=== PATIENT | male | born 1980 | race Caucasian/White ===

== ENCOUNTER 2021-06-18 09:15 | Outpatient (REF) | payer MEDICARE, MEDICAID, SELFPAY ==
--- NOTE | ~2021-06-18 | US_ITS ---
EXAMINATION: US ABDOMEN COMPLETE CLINICAL INFORMATION: Hepatitis C. COMPARISON: None TECHNIQUE: Real-time imaging of the abdominal viscera. FINDINGS: PANCREAS: Not visualized due to bowel gas ABDOMINAL AORTA: No bowel wall visualized due to bowel gas INFERIOR VENA CAVA: Not well visualized due to bowel gas LIVER: The liver is normal in size. The liver contour is normal. The liver echotexture is normal. No focal hepatic lesion. There is no intrahepatic biliary duct dilatation seen. GALLBLADDER: Normal. The gallbladder is physiologically distended without evidence of stones, sludge, polyps, wall thickening or pericholecystic fluid. COMMON BILE DUCT: Normal in caliber measuring 0.5 cm in diameter. RIGHT KIDNEY: Normal. No hydronephrosis. No renal calculi or focal parenchymal lesions. The kidney measures 10.7 cm in maximum dimension. LEFT KIDNEY: Normal. No hydronephrosis. No renal calculi or focal parenchymal lesions. The kidney measures 12.3 cm in maximum dimension. SPLEEN: Normal. The spleen measures 12.9 cm in maximum dimension. FREE FLUID: None. US/US abdomen complete IMPRESSION: Normal-appearing liver. Limited visualization of the pancreas, aorta and IVC due to bowel gas.
== END 2021-06-18 09:16 | disposition home or self-care (01) ==
LOC: HO.US 09:15
PROVIDERS: Visit Provider General Practice
DX: B19.20 Unspecified viral hepatitis C without hepatic coma (principal); E11.65 Type 2 diabetes mellitus with hyperglycemia; E78.5 Hyperlipidemia, unspecified; Z79.84 Long term (current) use of oral hypoglycemic drugs
CPT/HCPCS: 76700; 82947; 99212

== ENCOUNTER → 2021-06-25 14:28 | Outpatient (BNVA) | payer MEDICARE, MEDICAID, SELFPAY | PROVIDERS: PCP General Practice; Visit Provider Urology | DX: R39.12 Poor urinary stream (principal); R39.11 Hesitancy of micturition | CPT/HCPCS: 51798; 99202 ==

== ENCOUNTER → 2021-08-22 12:58 | Outpatient (BNVA) | payer MEDICARE, MEDICAID, SELFPAY | PROVIDERS: PCP General Practice; Visit Provider Dietitian, Registered | DX: E11.65 Type 2 diabetes mellitus with hyperglycemia (principal) | CPT/HCPCS: 97802 ==

== ENCOUNTER 2021-09-09 07:49 | Emergency (ER) | payer MEDICARE, MEDICAID, SELFPAY ==
--- NOTE | 2021-09-09 07:52 | ED.OVERDOSE ---
HPI - Overdose General Chief Complaint: Overdose Stated Complaint: OD Time Seen by Provider: 09/09/21 07:52 Source: patient and family Mode of arrival: ambulatory Limitations: no limitations History of Present Illness HPI Narrative: Pulled out of the car. Patient went to Methadone clinic but today was unconscious. He received 8mg of nasal methadone prior to my seeing him. 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 complaint: accidental overdose Onset (ago): minute(s) Intent: other (get high) Context: Accidental Overdose: wanted to get high Related Data Home Medications Medication Instructions Recorded Confirmed aspirin 81 mg chewable tablet 1 tab PO DAILY 06/18/21 06/18/21 escitalopram oxalate 10 mg tablet 10 mg PO DAILY 06/18/21 06/18/21 insulin glargine 100 unit/mL (3 20 unit SUBCUT BEDTIME 06/18/21 06/18/21 mL) subcutaneous pen methadone 5 mg/0.5 mL oral syringe 92 mg PO DAILY ea 06/18/21 06/18/21 (FOR ORAL USE ONLY) nicotine 21 mg/24 hr daily 1 patch TRANSDERMAL DAILY 06/18/21 06/18/21 transdermal patch omeprazole 20 mg capsule,delayed 20 mg PO DAILY 06/18/21 06/18/21 release lancets 28 gauge #100 ea 06/25/21 pen needle, diabetic 31 gauge x #1200 ea 06/25/2104/14 Previous Rx's Medication Instructions Recorded metformin 1,000 mg tablet 1,000 mg PO BID #60 tab 10/15/20 atorvastatin 40 mg tablet 40 mg PO BEDTIME #30 tab 06/18/21 blood sugar diagnostic (FreeStyle 1 strip MISCELLANEOUS DAILY #100 06/18/21 Lite Strips) strip pen needle, diabetic 32 gauge x #100 ea 06/18/21 (BD Ultra-Fine Mitzi Pen Needle) repaglinide 0.5 mg tablet 0.5 mg PO TID 30 Days #30 tab 06/18/21 tamsulosin 0.4 mg capsule 0.4 mg PO BEDTIME 30 Days #30 cap 06/25/21 Allergies Allergy/AdvReac Type Severity Reaction Status Date / Time haloperidol [From HALDOL] Allergy Unknown UNKNOWN Verified 06/25/21 14:40 haldol Allergy Unknown anaphalaxis Uncoded 06/18/21 13:03 Review of Systems Review of Systems: Yes Unobtainable due to mental status Neurologic: Denies Sensory deficit (Neuro) [facility] Past Medical History Medical History GERD (gastroesophageal reflux disease) Hyperlipidemia LDL goal <100 Surgical History History of ear surgery Hx of appendectomy Hx of hand surgery Hx of surgical amputation of finger Family History Family History (Updated 06/18/21 @ 12:42 by Anni Walker [facility]) Father No problems noted. Mother Diabetes Social History Social History Household Members: Other Household Members Other:: fiance Alcohol intake: unknown Patient Tobacco Use Status: Current everyday Tobacco user Use of substances other than those prescribed or required for medical reasons: Yes Advance Directives: No Advance Directives Information Provided: No Physical Exam Vital Signs: Vital Signs: Last Vital Signs Temp 96.8 F 09/09/21 11:40 Pulse 106 H 09/09/21 11:40 Resp 16 09/09/21 11:40 BP 107/56 L 09/09/21 11:40 Pulse Ox 97 09/09/21 11:40 Body Mass Index 30.4 Const: Other: arousable to pain, breathing Nutritional Appearance: average body habitus Limitations: altered mental status HENMT: Other: pin point pupils Ears: external ears normal General nose exam: Normal external nose present Mouth: Normal oral and palatal mucosa present and oropharynx normal Throat: Yes posterior oropharynx normal Eyes: General: appearance normal, both eyes and all related structures Neck: Other: supple Neck: Yes normal visual inspection Chest: Chest palpation & inspection: normal inspection of the chest Resp: Auscultation: clear to auscultation bilaterally Cardio: Jugular venous distension: no JVD Rate: regular rate Rhythm: regular rhythm Heart sounds: S1 normal heart sound present and S2 normal heart sound present GI: Inspection: Yes normal to inspection Palpation (GI): Soft to palpation, nontender and No hepatosplenomegaly present Auscultation: normal bowel sounds : General: Yes no CVA tenderness Back/Spine/Pelvis: Back: no CVA tenderness Skin: General skin exam: no rashes or lesions noted Neuro: Cranial nerves: Yes CN's II-XII intact bilaterally Motor exam (neuro): 5/5 motor strength present throughout Sensory Exam: No Sensory deficit (Neuro) Extrem: General: Yes normal to inspection Psych: Appearance: grossly normal Course Reevaluation(s) Reevaluation #1: patient more alert will dc home Time: 14:28 MDM - Overdose Lab Data Labs: Lab Results 09/09/21 Range/Units 07:54 POC Glucose 249 H (60-115) mg/dL Discharge Plan Discharge Clinical Impression: Drug overdose Qualifiers: Encounter type: initial encounter Injury intent: accidental or unintentional Qualified Code(s): T50.901A - Poisoning by unspecified drugs, medicaments and biological substances, accidental (unintentional), initial encounter Patient Disposition: Home, Self-Care Instructions: Adult Overdose (ED) Prescriptions: No Action metformin 1,000 mg tablet 1,000 mg PO BID Qty: 60 RF: 3 aspirin 81 mg tablet,chewable 1 tab PO DAILY RF: 0 escitalopram oxalate 10 mg tablet 10 mg PO DAILY RF: 0 nicotine 21 mg/24 hr patch 24 hour 1 patch transdermal DAILY RF: 0 omeprazole 20 mg capsule,delayed release(DR/EC) 20 mg PO DAILY RF: 0 Lantus Solostar U-100 Insulin 100 unit/mL (3 mL) insulin pen 20 unit subcut BEDTIME RF: 0 methadone 5 mg/0.5 mL syringe 92 mg PO DAILY RF: 0 repaglinide 0.5 mg tablet 0.5 mg PO TID 30 Days Qty: 30 RF: 4 FreeStyle Lite Strips Strip 1 strip miscellaneous DAILY Qty: 100 RF: 6 atorvastatin 40 mg tablet 40 mg PO BEDTIME Qty: 30 RF: 4 (DME) pen needle, diabetic [BD Ultra-Fine Mitzi Pen Needle] 32 gauge x 5/32 needle See Rx Instructions .ROUTE .MEDSUPPLY Qty: 100 RF: 3 tamsulosin 0.4 mg capsule 0.4 mg PO BEDTIME 30 Days Qty: 30 RF: 1 Referrals: Physician,None [Primary Care Provider] - 1 week
[2021-09-09 07:54] VITALS: BP 121/77; PULSE 71; RESP 10; TEMP 36.6; O2SAT 94; BMI 30.4
[2021-09-09 07:59] LABS: Glucose, Whole Blood 249 mg/dL (60-115)
--- NOTE | 2021-09-09 08:09 | PC.NURSE ---
Pt is now awake, alert and oriented and is screaming out towards staff. pt is noted to be tachycardic and very restless. made aware.
[2021-09-09 08:14] VITALS: PULSE 124; RESP 32; O2SAT 97
--- NOTE | 2021-09-09 08:48 | PC.NURSE ---
Pt pulled out his IV and threw it across the room. Right hand bandaged up. Pt took off his monitoring devices, but remains on EtCO2 monitoring. Pt continues to be restless, shaky and is diaphoretic. Pt is able to maintain his own airway.
--- NOTE | 2021-09-09 08:52 | MHC.CARE ---
Pt not able to engage in SUDE at this time. CONNIE Garduno made aware to reach out to CARE Team when Pt is able to participate if he is would like a SUDE.
--- NOTE | 2021-09-09 09:00 | PC.NURSE ---
Pt continually getting up, unsteady on feet and is not easily redirectible. Pt moved to [address] for closer monitoring.
--- NOTE | 2021-09-09 11:03 | PC.NURSE ---
pt ate a cup off vanila pudding and a cup of oj.
[2021-09-09 11:40] VITALS: BP 107/56; PULSE 106; RESP 16; TEMP 36; O2SAT 97
[2021-09-09 14:35] VITALS: BP 104/66; PULSE 95; RESP 16; TEMP 35.6; O2SAT 95
--- NOTE | 2021-09-09 14:39 | PC.NURSE ---
pt denies any si/hi.
== END 2021-09-09 14:57 | disposition home or self-care (01) ==
PROVIDERS: Emergency Provider Emergency Medicine
DX: T40.1X1A Poisoning by heroin, accidental (unintentional), initial encounter (principal); Y92.810 Car as the place of occurrence of the external cause
CPT/HCPCS: 82947; 99283; 99285

== ENCOUNTER 2022-07-29 09:21 | Outpatient (REF) | payer MEDICARE, MEDICAID, SELFPAY ==
--- NOTE | ~2022-07-29 | XR_ITS ---
EXAMINATION: LUMBAR SPINE AND BILATERAL HIPS CLINICAL INFORMATION: Right hip pain. COMPARISON: None. TECHNIQUE: 2 views of each hip. A 6 view lumbosacral spine. FINDINGS: There are 5 [id number] lumbar vertebra. The bony texture and alignment is satisfactory. No acute fracture, spondylolisthesis, or spondylolysis identified. There is moderate narrowing of the L5-S1 disc space. Sacroiliac joints appear unremarkable. Psoas margins are intact. 2 views of the left hip do not demonstrate any evidence of acute fracture or dislocation. Hip joint space is maintained. There is minor spurring of the greater trochanter. No suspicious lytic or sclerotic lesions are identified and there is no evidence of femoral head collapse. Views of the right hip do not show any evidence of acute fracture or dislocation. Right hip joint space is maintained. No abnormal lytic or sclerotic lesions identified. XR/XR hip RT min 2V IMPRESSION: Spondylosis L5-S1. No acute fracture, spondylolisthesis, or spondylolysis identified. No significant abnormality of the right or left hips is identified.
--- NOTE | ~2022-07-29 | XR_ITS ---
EXAMINATION: LUMBAR SPINE AND BILATERAL HIPS CLINICAL INFORMATION: Right hip pain. COMPARISON: None. TECHNIQUE: 2 views of each hip. A 6 view lumbosacral spine. FINDINGS: There are 5 [id number]-jwy-[id number] lumbar vertebra. The bony texture and alignment is satisfactory. No acute fracture, spondylolisthesis, or spondylolysis identified. There is moderate narrowing of the L5-S1 disc space. Sacroiliac joints appear unremarkable. Psoas margins are intact. 2 views of the left hip do not demonstrate any evidence of acute fracture or dislocation. Hip joint space is maintained. There is minor spurring of the greater trochanter. No suspicious lytic or sclerotic lesions are identified and there is no evidence of femoral head collapse. Views of the right hip do not show any evidence of acute fracture or dislocation. Right hip joint space is maintained. No abnormal lytic or sclerotic lesions identified. XR/XR hip LT min 2V IMPRESSION: Spondylosis L5-S1. No acute fracture, spondylolisthesis, or spondylolysis identified. No significant abnormality of the right or left hips is identified.
--- NOTE | ~2022-07-29 | XR_ITS ---
EXAMINATION: LUMBAR SPINE AND BILATERAL HIPS CLINICAL INFORMATION: Right hip pain. COMPARISON: None. TECHNIQUE: 2 views of each hip. A 6 view lumbosacral spine. FINDINGS: There are 5 [id number] lumbar vertebra. The bony texture and alignment is satisfactory. No acute fracture, spondylolisthesis, or spondylolysis identified. There is moderate narrowing of the L5-S1 disc space. Sacroiliac joints appear unremarkable. Psoas margins are intact. 2 views of the left hip do not demonstrate any evidence of acute fracture or dislocation. Hip joint space is maintained. There is minor spurring of the greater trochanter. No suspicious lytic or sclerotic lesions are identified and there is no evidence of femoral head collapse. Views of the right hip do not show any evidence of acute fracture or dislocation. Right hip joint space is maintained. No abnormal lytic or sclerotic lesions identified. XR/XR lumbar spine 4V min IMPRESSION: Spondylosis L5-S1. No acute fracture, spondylolisthesis, or spondylolysis identified. No significant abnormality of the right or left hips is identified.
== END 2022-07-29 09:22 | disposition home or self-care (01) ==
LOC: HO.XRAY 09:21
PROVIDERS: PCP General Practice; Visit Provider General Practice
DX: M25.551 Pain in right hip (principal); M25.552 Pain in left hip; M54.41 Lumbago with sciatica, right side; M54.42 Lumbago with sciatica, left side
CPT/HCPCS: 72110; 73502

== ENCOUNTER → 2022-11-05 15:14 | Outpatient (BNVA) | payer MEDICARE, MEDICAID, SELFPAY | PROVIDERS: PCP General Practice; Visit Provider Anesthesiology | DX: M47.816 Spondylosis without myelopathy or radiculopathy, lumbar region (principal); M70.61 Trochanteric bursitis, right hip; G89.4 Chronic pain syndrome; F11.20 Opioid dependence, uncomplicated | CPT/HCPCS: 99202 ==

== ENCOUNTER 2022-12-09 05:52 | Outpatient (REF) | payer MEDICARE, MEDICAID, SELFPAY ==
--- NOTE | ~2022-12-09 | FL_ITS ---
EXAMINATION: XR FLUOROSCOPY WITH IMAGES CLINICAL INFORMATION: M47.816 - Spondylosis without myelopathy or radiculopathy, lumbar region COMPARISON: Lumbar spine radiographs 07/29/2022 TECHNIQUE: Fluoroscopy Supervised By: Dr. Mauri Zarate. Fluoroscopy Time: 0.6 minutes. Cumulative Dose: 12.5 mGy. DAP: 3.41 Gycm2. Images: 6. FINDINGS: There are spinal needles overlying the bilateral outer L3, L4, and L5 neural foramen. There is contrast seen in the respective nerve sheaths. Some early transforaminal epidural extension is suggested. No visible vascular communication. FL/FL guidance in treatment room IMPRESSION: Fluoroscopy for pain management procedures.
== END 2022-12-09 05:53 | disposition home or self-care (01) ==
LOC: CF 05:52
PROVIDERS: Visit Provider Anesthesiology
DX: M47.816 Spondylosis without myelopathy or radiculopathy, lumbar region (principal); M70.61 Trochanteric bursitis, right hip; G89.4 Chronic pain syndrome; F11.20 Opioid dependence, uncomplicated
CPT/HCPCS: 64493; 64494

== ENCOUNTER → 2022-12-11 08:34 | Outpatient (BNVA) | payer MEDICARE, MEDICAID, SELFPAY | PROVIDERS: PCP General Practice; Visit Provider Anesthesiology | DX: M47.816 Spondylosis without myelopathy or radiculopathy, lumbar region (principal); M70.61 Trochanteric bursitis, right hip; G89.4 Chronic pain syndrome; F11.20 Opioid dependence, uncomplicated | CPT/HCPCS: Q3014 ==

== ENCOUNTER 2023-02-12 10:21 | Day surgery (SDC) | payer MEDICARE, MEDICAID, SELFPAY ==
--- NOTE | ~2023-02-12 | FL_ITS ---
EXAMINATION: XR FLUOROSCOPY WITH IMAGES CLINICAL INFORMATION: Low back pain COMPARISON: None available. TECHNIQUE: Fluoroscopy Supervised By: Dr. Mauri Zarate MA Fluoroscopy Time: 0.1 minute. Cumulative Dose: 3.52 mGy. DAP: 0.961 Gycm2. Images: 2. FINDINGS: 2 digital images obtained with solitary needle placed overlying the left L5 lamina. Visualized bones are grossly unremarkable. FL/FL guidance in OR IMPRESSION: Fluoroscopy was provided to referring physician for pain management.
--- NOTE | 2023-02-12 12:30 | MHC.SHP ---
Pre-Procedural Eval Section A Date of Service: 02/12/23 The patient is an INPATIENT: No Changes since office visit: Yes Patient answered all questions The History & Physical has been completed within 30 days and I have reviewed it.: No Section B Chief Complaint: Spondylosis without myelopathy or radiculopathy, l Details of Present Illness: as above Relevant Family History (Specify if Yes): No Relevant Social History: None Present Medications: None Medical History: No relevant PMH History of Previous Operations: No relevant previous surgery Allergies: Allergies Allergy/AdvReac Type Severity Reaction Status Date / Time haloperidol Allergy Anaphylaxis Verified 12/11/22 08:40 Review of Systems Sugical H&P ROS: Negative: Constitution, Cardiovascular, Respiratory, Neurological, Psychiatric, Hem-Onc, Allergic/Immunologic, Gastrointestinal, Genitourinary, Musculoskeletal, Integumentary, Endocrine and Eyes/Ears/Nose/Throat Exam Surgical H&P Exam: Normal: HEENT, Normal: Heart, Normal: Lungs, Normal: Extremities, Normal: Abdomen, Normal: Skin and Normal: Neurological Plan Diagnosis/Plan: Unchanged I have reviewed the history and physical and performed a pertinent physical examination on my patient. No changes have occurred unless specified. Time Spent With Patient Time: Total time managing care of this patient today ____ minutes.
[2023-02-12 12:35] VITALS: BMI 36.3
[2023-02-12] MEDS: LORazepam 1 MG TABLET PO (12:35)
[2023-02-12 12:42] VITALS: BP 124/81; PULSE 82; RESP 18; TEMP 36.2; O2SAT 97
--- NOTE | 2023-02-12 13:50 | P.BOP_ITS ---
Brief Operative Note Date of Service: 02/12/23 Pre-op diagnosis: spondylosis lumbar without myelopathy or rdiculopathy Post-op diagnosis: same Procedure: SPRINT stimulation PNS LEFT L5 Implants: none permanent Surgeon: Mauri Zarate MD Anesthesia: local Was an Metal Coater Operator used for this Procedure?: No Estimated blood loss (mL): 1 Pathology: none sent Condition: stable Disposition: PACU
--- NOTE | 2023-02-12 13:52 | P.OP_ITS ---
Operative Note Operative Note Date of Service: 02/12/23 Narrative: Percutaneous implantation of peripheral nerve stimulation Sprint system left L5. After the risks, benefits and alternatives were discussed with the patient and informed consent was obtained, patient was placed in the prone position and padded to foster comfort. Time out was performed delineating correct site and side of the procedure , name and of the patient, patient participated in time out procedure. Sterily draped C-arm was brought over the operating field and clear picture of the L5 lamina on the left was delineated on the screen. The upper central portion of the lamina was chosen as a target of the needle tip insertion . After identifying and marking the intended target, the skin around the planned entry point and the subcutaneous tissues were injected with local anesthetic forming skin wheal.. A percutaneous sleeve and stimulating probe lead introduction system were assembled, inserted and advanced through the skin wheal to the point of interest under C-arm view in tunnel vision fashion, the introducer needle was delivered to a location in proximity to the nerve. Multiple stimulation parameters were used to deliver stimulation to the nerve in concert with stimulating at multiple positions around the nerve. nerve target acquisition was confirmed noting generation of in the corresponding to the nerve being stimulated. Various electrical parameter combinations were tested. Final lo cation was verified with electrical stimulation. The introducer needle was removed, and the exposed end of the percutaneous lead was attached to an external stimulator unit. At the end of the case various electrical parameter combinations were again tested until the patient indicated paresthesia or muscle tension overlapping the distribution of the patient?s typical region of pain. After confirming that lead impedance was in the normal range, the external unit was detached, the needle was removed, and the lead was anchored at the skin. The lead was threaded into the connector block and electrical continuity and desired patient response was confirmed. The connector block was attached to the external stimulator unit. The site was covered with a sterile occlusive dressing and a image was taken to document final placement. Upon completion of the procedure the patient was taken outside the OR where he recovered uneventfully he went home without immediate complications.
[2023-02-12 13:55] VITALS: BP 137/88; PULSE 75; RESP 16; TEMP 36.2; O2SAT 98
[2023-02-12 14:10] VITALS: BP 129/80; PULSE 73; RESP 14; TEMP 36.2; O2SAT 99
== END 2023-02-12 14:32 | disposition home or self-care (01) ==
PROVIDERS: PCP General Practice; Visit Provider Anesthesiology
PROC: (CPT 64555; principal; 2023-02-12 13:40)
DX: M47.816 Spondylosis without myelopathy or radiculopathy, lumbar region (principal); G89.4 Chronic pain syndrome; M70.61 Trochanteric bursitis, right hip; E78.5 Hyperlipidemia, unspecified; K21.9 Gastro-esophageal reflux disease without esophagitis; F41.8 Other specified anxiety disorders; Z79.82 Long term (current) use of aspirin; Z79.899 Other long term (current) drug therapy; Z88.8 Allergy status to other drugs, medicaments and biological substances; F11.20 Opioid dependence, uncomplicated; F17.210 Nicotine dependence, cigarettes, uncomplicated
CPT/HCPCS: 64555; C1778

== ENCOUNTER → 2023-02-19 09:32 | Outpatient (BNVA) | payer MEDICARE, MEDICAID, SELFPAY | PROVIDERS: PCP General Practice; Visit Provider Anesthesiology | DX: M47.816 Spondylosis without myelopathy or radiculopathy, lumbar region (principal); M70.61 Trochanteric bursitis, right hip; G89.4 Chronic pain syndrome; F11.20 Opioid dependence, uncomplicated | CPT/HCPCS: 99212 ==

== ENCOUNTER → 2023-03-23 09:56 | Outpatient (BNVA) | payer MEDICARE, MEDICAID, SELFPAY | PROVIDERS: PCP General Practice; Visit Provider Anesthesiology | DX: M47.816 Spondylosis without myelopathy or radiculopathy, lumbar region (principal); M70.61 Trochanteric bursitis, right hip; F11.20 Opioid dependence, uncomplicated; G89.4 Chronic pain syndrome | CPT/HCPCS: 99212 ==

== ENCOUNTER → 2023-04-13 10:31 | Outpatient (BNVA) | payer MEDICARE, MEDICAID, SELFPAY | PROVIDERS: PCP General Practice; Visit Provider Anesthesiology | DX: M47.816 Spondylosis without myelopathy or radiculopathy, lumbar region (principal); M70.61 Trochanteric bursitis, right hip; F11.20 Opioid dependence, uncomplicated; G89.4 Chronic pain syndrome | CPT/HCPCS: 99212 ==

== ENCOUNTER 2023-10-15 09:24 | Outpatient (AMB) | payer MEDICARE, MEDICAID, SELFPAY ==
--- NOTE | 2023-10-15 09:26 | A.OFFVIS_ITS ---
Intake Intake Visit Reasons: Incomplete bladder emptying/A1C >10 Intake Note: NEW Patient presents today to established treatment for Incomplete Bladder Emptying/A1C >10: Meds- None Allergies to Antibiotic- No Known Allergies Blood Thinner- Aspirin PVR- 26 mL Automobile Technician Required: No Accompanied by: Self / Same As Patient Allergies haloperidol Allergy (Verified 10/15/23 09:32) Anaphylaxis Medication List - Last Reconciled 10/15/23 by Jesse Garces MD aspirin 1 tab PO DAILY atorvastatin 40 mg PO BEDTIME blood sugar diagnostic (FreeStyle Lite Strips) 1 strip miscellaneous DAILY escitalopram oxalate 10 mg PO DAILY exenatide microspheres ER mg subcut flash glucose sensor (FreeStyle Fran 2 Sensor kit) As directed glipizide 10 mg PO BID insulin glargine 20 units subcut BEDTIME lancets As directed metformin 1,000 mg PO BID methadone 95 mg PO DAILY nicotine 1 patch transdermal DAILY omeprazole 20 mg PO DAILY PRN pen needle, diabetic (BD Ultra-Fine Mitzi Pen Needle) As directed once daily pen needle, diabetic As directed HPI HPI Comments History of Present Illness Details Donavan is a 43-year-old male who presents today to the office to establish as a new patient for an evaluation of incomplete bladder emptying. 10/15/2023-- Donavan is a 43-year-old male with history of type 2 diabetes, history of drug use on methadone and nicotine dependence here for evaluation for lower urinary tract symptoms. He states that he was referred by his PCP due to symptoms of feelings of incomplete bladder emptying. He states that for several years on and off, he may sense that he has to push to empty the bladder. Patient states that the symptoms seemed to be more amplified and persistent while he is on Trulicity. Patient states that he is off of the Trulicty since 5 weeks and notes that he is emptying better, In review of his chart I noted an abdominal US that was done on 06/18/2021 revealed kidneys were within the normal limits. 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 Evaluation today--UA--leukocytes: negative; blood: negative; bladder scan PVR: 26 mL. Plan: Discussed behaviourial modification, Avoiding dietary irritants Currently pt's urinary symptoms are improved. Pt reassured that PVR is WNL Follow-up in one year. PFSH Medical History Hx of type 2 diabetes mellitus GERD (gastroesophageal reflux disease) Hyperlipidemia LDL goal <100 Surgical History History of ear surgery Hx of surgical amputation of finger Hx of hand surgery Hx of appendectomy Family History Father No problems noted. Mother Diabetes Social History Household Members: Other Household Members Other:: fiance Alcohol intake: unknown Patient Tobacco Use Status: Current everyday Tobacco user Review of Systems Const All systems reviewed & are unremarkable except as noted in HPI and below Reports no additional complaints Eyes Reports no additional complaints ENT Reports no additional complaints Card Denies dyspnea Resp Denies cough and Denies dyspnea GI Reports no additional complaints Musc Reports no additional complaints Skin/Breast Denies rash and Denies unusual bruising Neuro Reports no additional complaints Psych Reports no additional complaints Endo Reports no additional complaints Phani/Lymph Reports no additional complaints Aller/Immun Reports no additional complaints Physical Exam Const General: healthy appearing, no acute distress and well developed Nutritional Appearance: overweight Orientation/consciousness: patient oriented x3 HEENT Head: Yes normocephalic and Yes atraumatic Eyes Conjunctivae: conjunctivae normal Neck Neck: Yes normal visual inspection Chest Chest palpation & inspection: normal inspection of the chest Resp Effort & Inspection: normal respiratory effort Cardio Rate: regular rate GI Inspection: Yes normal to inspection Palpation (GI): Soft to palpation Skin General skin exam: no rashes or lesions noted Neuro General: patient oriented x3 Extrem General: No pedal edema Psych Appearance: grossly normal Affect: normal affect Office Procedures Post Void Residual Post Residual Void Post Void Residual (PVR): 26 [id number] Void Residual by ultrasound Results AMB Urinalysis, Automated UA Leukoctes 0 Marisela/uL Last Edit by Skylar Black Dominique on 10/15/23 09:52 UA Nitrite Negative Last Edit by Skylar Black [facility] on 10/15/23 09:52 UA Urobilinogen 0.2 mg/dL Last Edit by Skylar Black, [facility] on 10/15/23 09:5 2 UA Protein 0 mg/dL Last Edit by Skylar Black [facility] on 10/15/23 09:52 UA pH 6.0 Last Edit by Skylar Black, [facility] on 10/15/23 09:52 UA Blood 0 Eliel/uL Last Edit by Skylar Black [facility] on 10/15/23 09:52 UA Specific [place] 1.015 Last Edit by Skylar Black [facility] on 10/15/23 09: 52 UA Ketone Negative Last Edit by Skylar Black [facility] on 10/15/23 09:52 UA Bilirubin 0 mg/dL Last Edit by Skylar Black [facility] on 10/15/23 09:52 UA Glucose 1000 mg/dL Last Edit by Skylar Black [facility] on 10/15/23 09:52 3+ Skylar Black 10/15/23 09:52 Results Reviewed Results Reviewed: Laboratory Last Values Urine pH (Auto) 6.0 10/15/23 09:51 Specific [place] (Auto) 1.015 10/15/23 09:51 Urine Protein (Auto) 0 mg/dL 10/15/23 09:51 Glucose (UA)(Auto) 1000 mg/dL 10/15/23 09:51 Urine Ketones (Auto) Negative 10/15/23 09:51 Urine Blood (Auto) 0 Elile/uL 10/15/23 09:51 Urine Nitrite (Auto) Negative 10/15/23 09:51 Urine Bilirubin (Auto) 0 mg/dL 10/15/23 09:51 Urine Urobilinogen (Auto) 0.2 mg/dL 10/15/23 09:51 Leukocyte Esterase (Auto) 0 Marisela/uL 10/15/23 09:51 Date of Service: 07/20/21 EXAMINATION: US ABDOMEN COMPLETE CLINICAL INFORMATION: Hepatitis C. COMPARISON: None FINDINGS: PANCREAS: Not visualized due to bowel gas ABDOMINAL AORTA: No bowel wall visualized due to bowel gas INFERIOR VENA CAVA: Not well visualized due to bowel gas LIVER: The liver is normal in size. The liver contour is normal. The liver echotexture is normal. No focal hepatic lesion. There is no intrahepatic biliary duct dilatation seen. GALLBLADDER: Normal. The gallbladder is physiologically distended without evidence of stones, sludge, polyps, wall thickening or pericholecystic fluid. COMMON BILE DUCT: Normal in caliber measuring 0.5 cm in diameter. RIGHT KIDNEY: Normal. No hydronephrosis. No renal calculi or focal parenchymal lesions. The kidney measures 10.7 cm in maximum dimension. LEFT KIDNEY: Normal. No hydronephrosis. No renal calculi or focal parenchymal lesions. The kidney measures 12.3 cm in maximum dimension. SPLEEN: Normal. The spleen measures 12.9 cm in maximum dimension. FREE FLUID: None. IMPRESSION: Normal-appearing liver. Limited visualization of the pancreas, aorta and IVC due to bowel gas. Assessment & Plan Assessment & Plan (1) Urinary hesitancy: Code(s): R39.11 - Hesitancy of micturition (2) DMII (diabetes mellitus, type 2): Code(s): E11.9 - Type 2 diabetes mellitus without complications Qualifiers: Diabetes mellitus complication status: with hyperglycemia Diabetes mellitus senior care insulin use: without powder mill operator use Qualified Code(s): E11.65 - Type 2 diabetes mellitus with hyperglycemia (3) History of secondary hypogonadism: Code(s): Z86.39 - Personal history of other endocrine, nutritional and metabolic disease (4) Feeling of incomplete bladder emptying: Code(s): R39.14 - Feeling of incomplete bladder emptying Plan Discussed behaviourial modification, Avoiding dietary irritants Currently pt's urinary symptoms are improved. Pt reassured that PVR is WNL Follow-up in one year. Orders: Orders AMB Urinalysis Automated 10/15/23 Z13.9 - Encounter for screening, unspecified AMB Post Void Residual by ultrasound 10/15/23 N39.8 - Other specified disorders of urinary system US retroperitoneal comp 10/15/23 R39.11 - Hesitancy of micturition Patient Instructions: The patient had an opportunity to ask questions regarding treatment plan. All questions were answered. Imaging, Laboratory studies and physical exam results were discussed and reviewed in detail. No major barriers to understanding were identified. The patient expressed understanding and agreement with the above treatment plan. The patient is aware they should contact our office by phone for worsening of their current condition or the appearance of new symptoms. Compliance is encouraged with any medications and followup testing that is ordered. It is a privilege to be allowed the opportunity to participate in the urologic care of your patient. If you have any questions or concerns regarding treatment for the above conditions please do not hesitate to contact me. The office telephone contact is [phone]. This note is constructed in part using voice recognition software. While every effort has been made to ensure accuracy united [place] marshal errors may have been included. Yours sincerely, Jesse Garces MD Coding Level of Care Code New Pt Level 4 (18662) Diagnoses Urinary hesitancy R39.11 Type 2 diabetes mellitus with hyperglycemia, without long-term current use of insulin E11.65 Diabetes mellitus complication status: with hyperglycemia Diabetes mellitus senior care insulin use: without powder mill operator use History of secondary hypogonadism Z86.39 Feeling of incomplete bladder emptying R39.14 CPT Codes Post Residual Void - PVR CPT Code: 99024-[id number] Void Residual by ultrasound ([id number])
== END 2023-10-15 10:13 | disposition home or self-care (01) ==
PROVIDERS: PCP General Practice; Visit Provider Urology
DX: R39.11 Hesitancy of micturition (principal); E11.65 Type 2 diabetes mellitus with hyperglycemia; Z86.39 Personal history of other endocrine, nutritional and metabolic disease; R39.14 Feeling of incomplete bladder emptying
CPT/HCPCS: 99204; 99214

== ENCOUNTER → 2023-10-15 09:24 | Outpatient (BNVA) | payer MEDICARE, MEDICAID, SELFPAY | PROVIDERS: PCP General Practice; Visit Provider Urology | DX: R39.11 Hesitancy of micturition (principal); R39.14 Feeling of incomplete bladder emptying; E11.65 Type 2 diabetes mellitus with hyperglycemia; Z86.39 Personal history of other endocrine, nutritional and metabolic disease | CPT/HCPCS: 51798; 81003; 99202 ==

== ENCOUNTER → 2024-02-25 09:06 | Outpatient (REF) | payer MEDICARE, MEDICAID, SELFPAY | LOC: HO.SL 09:06 | PROVIDERS: PCP General Practice; Visit Provider General Practice | DX: Z13.89 Encounter for screening for other disorder (principal) ==

== ENCOUNTER 2024-12-17 05:11 | Emergency (ER) | payer MEDICARE, MEDICAID, SELFPAY ==
[2024-12-17] VITALS (14 sets, daily range): BP systolic 91–138; BP diastolic 52–84; PULSE 59–106; RESP 14–24; TEMP 35.9–36.4; O2SAT 94–99; BMI 29.0
--- NOTE | 2024-12-17 05:17 | ED.GENADULT ---
HPI - General Adult General Chief complaint: Overdose Stated complaint: SNORTED HERION Time Seen by Provider: 12/17/24 05:15 Source: EMS Mode of arrival: EMS Limitations: altered mental status History of Present Illness ED Provider: Dr. Radha Hernandez HPI narrative: Patient comes to the emergency room via ambulance. Seems that earlier today patient was using heroin, overdose, a bystander gave intranasal Narcan. When PD and EMS arrived, patient was acting erratic, combative, brought to the emergency room. Patient not giving any information. Fixed confused, throwing punches Related Data Home Medications ?Medication ?Instructions ?Recorded ?Confirmed aspirin 81 mg chewable tablet 1 tab PO DAILY 06/18/21 10/15/23 escitalopram oxalate 10 mg tablet 10 mg PO DAILY 06/18/21 10/15/23 insulin glargine 100 unit/mL (3 20 unit subcut BEDTIME 06/18/21 10/15/23 mL) subcutaneous pen nicotine 21 mg/24 hr daily 1 patch transdermal DAILY 06/18/21 10/15/23 transdermal patch lancets 28 gauge #100 ea 06/25/21 10/15/23 pen needle, diabetic 31 gauge x #1,200 ea 06/25/21 10/15/2304/14 flash glucose sensor (FreeStyle #1 ea 12/11/22 10/15/23 Fran 2 Sensor kit) glipizide 10 mg tablet 10 mg PO BID 12/11/22 10/15/23 exenatide microspheres 2 mg mg subcut 10/15/23 10/15/23 subcutaneous extended release suspension methadone 5 mg/0.5 mL oral syringe 95 mg PO DAILY 10/15/23 10/15/23 (FOR ORAL USE ONLY) omeprazole 20 mg capsule,delayed 20 mg PO DAILY PRN 10/15/23 10/15/23 release Previous Rx's ?Medication ?Instructions ?Recorded metformin 1,000 mg tablet 1,000 mg PO BID #60 tabs 10/15/20 atorvastatin 40 mg tablet 40 mg PO BEDTIME #30 tabs 06/18/21 blood sugar diagnostic (FreeStyle 1 strip miscellaneous DAILY #100 06/18/21 Lite Strips) strips pen needle, diabetic 32 gauge x #100 ea 06/18/21 (BD Ultra-Fine Mitzi Pen Needle) Allergies Allergy/AdvReac Type Severity Reaction Status Date / Time haloperidol Allergy Anaphylaxis Verified 12/17/24 05:23 Review of Systems Review of Systems: Yes Unobtainable due to mental status [facility] Past Medical History Medical History Hx of type 2 diabetes mellitus GERD (gastroesophageal reflux disease) Hyperlipidemia LDL goal <100 Surgical History History of ear surgery Hx of surgical amputation of finger Hx of hand surgery Hx of appendectomy Family History Family History Father No problems noted. Mother Diabetes Social History Social History Household Members: Other Household Members Other:: fiance Alcohol intake: unknown Patient Tobacco Use Status: Current everyday Tobacco user Physical Exam ED Vital Signs: Vital Signs - 24 hr 12/17/24 05:21 Oxygen Delivery Method Room Air BMI result Body Mass Index 29.0 Const Other: Appearance: Alert. Combative, confused Eyes: Pupils equal, round and reactive to light. ENT: Pharynx normal. Neck: Normal inspection. Neck supple. No lymph nodes noted. No crepitus CVS: Normal heart rate and rhythm. Pulses normal. Normal S1 and S2 Respiratory: No respiratory distress. Breath sounds normal. No Wheezing. No rales Abdomen: Soft and nontender. No rigidity. No distention. Skin: Skin warm and dry. Normal skin color. Normal skin turgor. Extremities: No lower extremity edema. No Lacerations. No Rash Neuro: Acting erratic, moving all extremities Psych: Acting erratic, difficult to redirect, trying to get out of bed and nearly falling. Course Course Course Narrative: For patient's safety, patient was given IM diphenhydramine and Ativan. Patient is allergic to Haldol. Patient is starting to become slightly more redirectable. Patient is still a bit agitated. All of patient's labs pending. Upon discharge, patient will be given take him Narcan. Patient received a dose of IM diphenhydramine and Ativan. Patient's was still very agitated. Trying to get out of bed, trying to walk around the emergency room, staff trying to hold him redirect him back to bed, very unsteady gait. Patient aggressive towards staff. Patient was given an additional dose of IM Geodon 20 mg Medications Administered Discontinued Medications Generic Name Dose Route Start Last Admin Trade Name Angus PRN Reason Stop Dose Admin Diphenhydramine HCl 50 mg 12/17/24 05:15 12/17/24 05:27 Diphenhydramine Hcl 50 Mg/Ml Vial IM 12/17/24 05:16 50 mg ONCE ONE Administration Lorazepam 2 mg 12/17/24 05:15 12/17/24 05:28 Lorazepam 2 Mg/Ml Vial IM 12/17/24 05:16 2 mg STAT STA Administration Medical Decision Making Differential Diagnosis Differential Diagnoses: The differential diagnosis associated with the presentation includes (Polysubstance abuse, overdose, alcohol intoxication) Admission/Observation Consideration of admission/observation: Escalation of care including admission/observation considered (Patient is too agitated, just got a medications. Patient to be assess for SI/HI/detox once fully awake.) Discharge Plan Discharge Clinical Impression: Overdose, Polysubstance abuse Patient Disposition: Still a Patient Prescriptions: No Action metformin 1,000 mg tablet 1,000 mg PO BID Qty: 60 3RF aspirin 81 mg tablet,chewable 1 tab PO DAILY escitalopram oxalate 10 mg tablet 10 mg PO DAILY nicotine 21 mg/24 hr patch 24 hour 1 patch transdermal DAILY Lantus Solostar U-100 Insulin 100 unit/mL (3 mL) insulin pen 20 unit subcut BEDTIME FreeStyle Lite Strips Strip 1 strip miscellaneous DAILY Qty: 100 6RF atorvastatin 40 mg tablet 40 mg PO BEDTIME Qty: 30 4RF (DME) pen needle, diabetic [BD Ultra-Fine Mitzi Pen Needle] 32 gauge x 5 needle See Rx Instructions .ROUTE .MEDSUPPLY Qty: 100 3RF Rx Instructions: As directed once daily methadone 5 mg/0.5 mL syringe 95 mg PO DAILY omeprazole 20 mg capsule,delayed release(DR/EC) 20 mg PO DAILY PRN (DME) pen needle, diabetic 31 gauge x 516 needle See Rx Instructions subcut DIRECTED Qty: 1200 Rx Instructions: As directed (DME) lancets 28 gauge misc See Rx Instructions topical DAILY Qty: 100 Rx Instructions: As directed (DME) FreeStyle Fran 2 Sensor Kit See Rx Instructions .ROUTE DIRECTED Qty: 1 Rx Instructions: As directed glipizide 10 mg tablet 10 mg PO BID exenatide microspheres 2 mg suspension,extended rel recon subcut Print Language: Portuguese
--- NOTE | 2024-12-17 05:22 | MHC.EDTECH ---
Security at bedside doing regional climate change analyst of Pt. Pt had clothing only per security, and they put belongings in decon.
[2024-12-17] MEDS: diphenhydrAMINE HCL 50 MG/ML VIAL IM (05:27)
[2024-12-17] MEDS: LORazepam 2 MG/ML VIAL IM (05:28)
--- NOTE | 2024-12-17 05:30 | MHC.EDTECH ---
Delay in vitals/labs due to Pt being uncooperative and unable to sit still.
[2024-12-17] MEDS: Ziprasidone Mesylate 20 MG VIAL IM (05:46)
--- NOTE | 2024-12-17 05:47 | PC.NURSE ---
Pt medicated per jan. Plan of care ongoing.
--- NOTE | 2024-12-17 06:51 | PC.NURSE ---
Pts carleen called and can be reached at #[phone].
[2024-12-17 15:24] LABS: MANUAL DIFF FLAG NO
[2024-12-17 15:28] LABS: Basophils Percent Auto 0.4 % (0-2); Eosinophils Absolute Auto 0.1 X10*3/uL (0.0-0.4); Hematocrit 42.7 % (42.0-52.0); Hemoglobin 15.1 g/dl (14.0-18.0); Imm Gran Abs Auto 0.03 X10*3/uL (0.00-0.03); Imm Gran Pct Auto 0.4 % (0.0-0.4); Lymphocytes Absolute Auto 3.1 X10*3/uL (1.2-4.9); Lymphocytes Percent Auto 43.7 % (20-40); Mean Corpuscular HGB Conc 35.4 g/dl (31.0-36.0); Mean Corpuscular Hemoglobin 28.6 pg (27.0-33.0); Mean Corpuscular Volume 80.9 fL (80.0-98.0); Mean Platelet Volume 8.8 fL (9.4-12.4); Monocytes Absolute Auto 0.5 X10*3/uL (0.1-1.2); Neutrophils Absolute Auto 3.3 x10*3/uL (2.0-8.3); Neutrophils Percent Auto 46.5 % (45-73); Platelet Count 171 X10*3/uL (160-400); Red Blood Count 5.28 X10*6/uL (4.60-5.80); Red Cell Distribution Width 12.3 % (11.0-16.0); White Blood Count 7.2 X10*3/uL (4.8-10.8)
[2024-12-17 15:40] LABS: Alanine Aminotransferase 19 U/L (0-40); Albumin Level 3.9 g/dL (3.5-5.0); Alkaline Phosphatase 51 U/L (39-117); Anion Gap 9 (12-20); Aspartate Amino Transferase 32 U/L (5-37); Bilirubin Direct 0.2 mg/dL (0.0-0.5); Bilirubin Total 0.5 mg/dL (0.0-1.0); Blood Urea Nitrogen 9 mg/dL (9-16); Calcium 9.4 mg/dL (8.4-10.2); Carbon Dioxide 30 mmol/L (22-29); Chloride 105 mmol/L (96-108); Creatinine Clr Calc Pharmacy 150.5; Estimated Glomerular Filt Rate > 60; Ethanol < 10 mg/dL; Glucose Random 195 mg/dL (60-115); Potassium 4.9 mmol/L (3.3-5.1); Sodium 139 mmol/L (135-145); Total Protein 7.3 g/dL (6.5-8.0)
[2024-12-17 15:55] LABS: Amphetamine Screen Urine Not Detected (Not Detect); Barbiturates, Urine Not Detected (Not Detect); Benzodiazepines Screen Urine Not Detected (Not Detect); Buprenorphine Scr Not Detected (Not Detect); Cannabinoid Screen Urine Not Detected (Not Detect); Cocaine Screen Urine Not Detected (Not Detect); Fentanyl, urine POSITIVE (Not Detect); Methadone Screen, Urine Positive (Not Detect); Opiate Screen Urine Not Detected (Not Detect); Oxycodone Screen Urine Not Detected (Not Detect); Phencyclidine Screen Urine Not Detected (Not Detect)
[2024-12-17] MEDS: Naloxone HCl Nasal TAKE HOME 4 MG SPRAY 8 MG NOSTRILALT (21:36)
--- NOTE | 2024-12-17 21:36 | PC.NURSE ---
Narcan 8mg given for take home use if needed in an emergency. NOT administered/opened.
--- NOTE | 2024-12-18 22:35 | PC.NURSE ---
Late entry - Safety check completed on worklist.
== END 2024-12-17 21:51 | disposition home or self-care (01) ==
PROVIDERS: Emergency Provider Emergency Medicine
DX: T40.1X1A Poisoning by heroin, accidental (unintentional), initial encounter (principal); R45.1 Restlessness and agitation; Y92.410 Unspecified street and highway as the place of occurrence of the external cause; R45.6 Violent behavior; F19.10 Other psychoactive substance abuse, uncomplicated; E11.9 Type 2 diabetes mellitus without complications; E78.5 Hyperlipidemia, unspecified; F17.210 Nicotine dependence, cigarettes, uncomplicated; Z79.84 Long term (current) use of oral hypoglycemic drugs; Z79.02 Long term (current) use of antithrombotics/antiplatelets; Z79.82 Long term (current) use of aspirin; Z79.4 Long term (current) use of insulin
CPT/HCPCS: 36415; 80048; 80076; 80307; 85025; 96372; 99284; 99285; J1200; J2060; J3486; S9485

== ENCOUNTER 2025-02-28 04:13 | Emergency (ER) | payer MEDICARE, MEDICAID, SELFPAY ==
--- NOTE | 2025-02-28 | ECG_ITS ---
Test Reason : CP Blood Pressure : */* mmHG Vent. Rate : 82 BPM Atrial Rate : 82 BPM P-R Int : 156 ms QRS Dur : 92 ms QT Int : 380 ms P-R-T Axes : 13 -26 26 degrees QTcB Int : 443 ms Normal sinus rhythm Normal ECG When compared with ECG of 27-Mar-2020 13:46, No significant change was found Referred By: Generic ED Physician Electronically Signed By: ZEFERINO WALL
--- NOTE | ~2025-02-28 | XR_ITS ---
CLINICAL HISTORY: chest pain sob 2 view chest x-ray Comparison: None Findings: The lungs are clear. Normal size heart. No acute fracture. IMPRESSION: 1. No acute findings. This document has been electronically signed by: Yobany Ball MD, PHD on 02/28/2025 04:59:57
[2025-02-28 04:16] VITALS: BP 138/84; PULSE 90; O2SAT 99
[2025-02-28 04:26] VITALS: BP 140/84; PULSE 80; RESP 17; TEMP 36.7; O2SAT 99; BMI 28.9
[2025-02-28 04:55] LABS: Hematocrit 40.3 % (42.0-52.0); Hemoglobin 14.5 g/dl (14.0-18.0); Mean Corpuscular Hemoglobin 28.7 pg (27.0-33.0); Mean Corpuscular Volume 79.8 fL (80.0-98.0); Mean Platelet Volume 9.1 fL (9.4-12.4); Platelet Count 182 X10*3/uL (160-400); Red Blood Count 5.05 X10*6/uL (4.60-5.80); Red Cell Distribution Width 12.7 % (11.0-16.0); White Blood Count 7.7 X10*3/uL (4.8-10.8)
[2025-02-28 05:00] LABS: INTERNATIONAL NORM RATIO 0.9 (0.9-1.1)
--- NOTE | 2025-02-28 05:13 | ED_ITS ---
HPI - Chest Pain General Chief Complaint: Chest Pain Stated Complaint: CP x 1 hr Time Seen by Provider: 02/28/25 05:13 Source: patient Mode of arrival: ambulatory Limitations: no limitations History of Present Illness ED Provider: HPI narrative: Patient is in police custody complaining of pain in the mid chest and left upper chest which increases on palpation no shortness a breath no prior history of coronary artery disease Related Data Home Medications ?Medication ?Instructions ?Recorded ?Confirmed aspirin 81 mg chewable tablet 1 tab PO DAILY 06/18/21 10/15/23 escitalopram oxalate 10 mg tablet 10 mg PO DAILY 06/18/21 10/15/23 insulin glargine 100 unit/mL (3 20 unit subcut BEDTIME 06/18/21 10/15/23 mL) subcutaneous pen nicotine 21 mg/24 hr daily 1 patch transdermal DAILY 06/18/21 10/15/23 transdermal patch lancets 28 gauge #100 ea 06/25/21 10/15/23 pen needle, diabetic 31 gauge x #1,200 ea 06/25/21 10/15/2304/14 flash glucose sensor (FreeStyle #1 ea 12/11/22 10/15/23 Fran 2 Sensor kit) glipizide 10 mg tablet 10 mg PO BID 12/11/22 10/15/23 exenatide microspheres 2 mg mg subcut 10/15/23 10/15/23 subcutaneous extended release suspension methadone 5 mg/0.5 mL oral syringe 95 mg PO DAILY 10/15/23 10/15/23 (FOR ORAL USE ONLY) omeprazole 20 mg capsule,delayed 20 mg PO DAILY PRN 10/15/23 10/15/23 release Previous Rx's ?Medication ?Instructions ?Recorded metformin 1,000 mg tablet 1,000 mg PO BID #60 tabs 10/15/20 atorvastatin 40 mg tablet 40 mg PO BEDTIME #30 tabs 06/18/21 blood sugar diagnostic (FreeStyle 1 strip miscellaneous DAILY #100 06/18/21 Lite Strips) strips pen needle, diabetic 32 gauge x #100 ea 06/18/21 (BD Ultra-Fine Mitzi Pen Needle) Allergies Allergy/AdvReac Type Severity Reaction Status Date / Time haloperidol Allergy Anaphylaxis Verified 02/28/25 04:27 Review of Systems 2 Review of Systems: Yes all other systems are reviewed and are negative PMFSH Past Medical History Medical History Hx of type 2 diabetes mellitus GERD (gastroesophageal reflux disease) Hyperlipidemia LDL goal <100 Surgical History History of ear surgery Hx of surgical amputation of finger Hx of hand surgery Hx of appendectomy Family History Family History Father No problems noted. 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 Oriented X3. No acute distress. Eyes: PERRLA, No Nystagmus ENT: Pharynx normal. Oral Mucosa moist Neck: Normal inspection. Neck supple. CVS: Normal heart rate and rhythm. Pulses normal. Tenderness 2nd intercostal space on the left side Respiratory: No respiratory distress. Equal air entry bilateral, no wheezing/rales/rhonchi Abdomen: Soft and nontender. Bowel sounds are present, no mass palpable, no CVA tenderness Skin: Skin warm and dry. Normal skin color. Normal skin turgor. Extremities: No lower extremity edema. No calf tenderness Neuro: Oriented X 3. No motor deficit. Medications Administered Discontinued Medications Generic Name Dose Route Start Last Admin Trade Name Freq PRN Reason Stop Dose Admin Insulin Glargine 80 unit 02/28/25 05:22 02/28/25 05:54 Insulin Glargine,Hum.Rec.Anlog 100 Unit/Ml 10 Ml Vial SUBCUT 02/28/25 05:23 80 unit ONCE ONE Administration Insulin Human Lispro 14 unit 02/28/25 05:22 02/28/25 05:54 Insulin Lispro 100 Unit/Ml 3 Ml Vial SUBCUT 02/28/25 05:23 14 unit ONCE ONE Administration Medical Decision Making Medical Decision Making [facility] Narrative: Patient with local tenderness left consult witnessed with heart score of 0 EKG negative for ischemia troponin I also negative will discharge patient home Lab Data [facility] Lab Attestation statement: I reviewed the patient's lab results. 02/28/25 04:48 02/28/25 04:48 Labs: Lab Results 02/28/25 Range/Units 04:48 WBC 7.7 (4.8-10.8) X10*3/uL RBC 5.05 (4.60-5.80) X10*6/uL Hgb 14.5 (14.0-18.0) g/dl Hct 40.3 L (42.0-52.0) % MCV 79.8 L (80.0-98.0) fL MCH 28.7 (27.0-33.0) pg MCHC 36.0 (31.0-36.0) g/dl RDW 12.7 (11.0-16.0) % Plt Count 182 (160-400) X10*3/uL MPV 9.1 L (9.4-12.4) fL Absolute Nucleated RBC 0.000 (0.0-0.012) X10*3/uL Nucleated RBC % (auto) 0.0 (0.0-0.2) /100WBC PT 11.0 (10.9-12.4) SEC INR 0.9 (0.9-1.1) Sodium 137 (135-145) mmol/L Potassium 4.5 (3.3-5.1) mmol/L Chloride 103 (96-108) mmol/L Carbon Dioxide 20 L (22-29) mmol/L Anion Gap 19 (12-20) BUN 16 (9-16) mg/dL Creatinine 0.89 (0.5-1.4) mg/dL Estim Creat Clear Calc 122.7 Estimated GFR > 60 Random Glucose 390 H* (60-115) mg/dL Calcium 9.6 (8.4-10.2) mg/dL Total Bilirubin 0.3 (0.0-1.0) mg/dL AST 21 (5-37) U/L ALT 8 (0-40) U/L Alkaline Phosphatase 45 (39-117) U/L Troponin I High Sens < 2.7 (<3.5-35.0) ng/L B-Natriuretic Peptide < 10 (<100) pg/mL Total Protein 7.5 (6.5-8.0) g/dL Albumin 4.2 (3.5-5.0) g/dL Influenza Type A (PCR) NEGATIVE (Negative) Influenza Type B (PCR) NEGATIVE (Negative) RSV RNA Qual (PCR) NEGATIVE (Negative) SARS-CoV-2 RNA (RT-PCR) NEGATIVE (Negative) Independent Interpretation I performed an independent interpretation of an: EKG Interpretation: Normal sinus rhythm heart rate 82 beats per minute normal intervals normal axis no acute ST-T changes no acute ischemia impression normal EKG Discharge Plan Discharge Clinical Impression: Atypical chest pain, Diabetes mellitus with hyperglycemia Patient Disposition: Home, Self-Care Instructions: Chest Pain (ED), Diabetic Hyperglycemia (ED) Additional Instructions: Take your insulin on time your chest pain is atypical unlikely of the heart blood workup is negative for acute heart damage Stop taking drugs and follow with your PCP Prescriptions: No Action metformin 1,000 mg tablet 1,000 mg PO BID Qty: 60 3RF aspirin 81 mg tablet,chewable 1 tab PO DAILY escitalopram oxalate 10 mg tablet 10 mg PO DAILY nicotine 21 mg/24 hr patch 24 hour 1 patch transdermal DAILY Lantus Solostar U-100 Insulin 100 unit/mL (3 mL) insulin pen 20 unit subcut BEDTIME FreeStyle Lite Strips Strip 1 strip miscellaneous DAILY Qty: 100 6RF atorvastatin 40 mg tablet 40 mg PO BEDTIME Qty: 30 4RF (DME) pen needle, diabetic [BD Ultra-Fine Mitzi Pen Needle] 32 gauge x needle See Rx Instructions .ROUTE .MEDSUPPLY Qty: 100 3RF Rx Instructions: As directed once daily methadone 5 mg/0.5 mL syringe 95 mg PO DAILY omeprazole 20 mg capsule,delayed release(DR/EC) 20 mg PO DAILY PRN (DME) pen needle, diabetic 31 gauge x 5/16 needle See Rx Instructions subcut DIRECTED Qty: 1200 Rx Instructions: As directed (DME) lancets 28 gauge misc See Rx Instructions topical DAILY Qty: 100 Rx Instructions: As directed (DME) FreeStyle Fran 2 Sensor Kit See Rx Instructions .ROUTE DIRECTED Qty: 1 Rx Instructions: As directed glipizide 10 mg tablet 10 mg PO BID exenatide microspheres 2 mg suspension,extended rel recon subcut Interventions: ED Discharge Assessment Last Done: 02/28/25 06:02 Discharge Date/Time: 02/28/25 06:03 Print Language: [place]
[2025-02-28 05:16] LABS: B Type Natriuretic Peptide < 10 pg/mL (<100)
[2025-02-28 05:20] LABS: Troponin-I High Sensitivity < 2.7 ng/L (<3.5-35.0)
[2025-02-28 05:21] LABS: Alanine Aminotransferase 8 U/L (0-40); Albumin Level 4.2 g/dL (3.5-5.0); Alkaline Phosphatase 45 U/L (39-117); Anion Gap 19 (12-20); Aspartate Amino Transferase 21 U/L (5-37); Bilirubin Total 0.3 mg/dL (0.0-1.0); Blood Urea Nitrogen 16 mg/dL (9-16); Calcium 9.6 mg/dL (8.4-10.2); Carbon Dioxide 20 mmol/L (22-29); Chloride 103 mmol/L (96-108); Creatinine Clr Calc Pharmacy 122.7; Estimated Glomerular Filt Rate > 60; Glucose Random 390 mg/dL (60-115); Potassium 4.5 mmol/L (3.3-5.1); Sodium 137 mmol/L (135-145); Total Protein 7.5 g/dL (6.5-8.0)
[2025-02-28 05:32] LABS: Influenza A PCR NEGATIVE (Negative); Influenza B PCR NEGATIVE (Negative); Resp Syncy Virus RNA Qual PCR NEGATIVE (Negative); SARS COV2 PCR INHOUSE NEGATIVE (Negative)
--- OUTSIDE RECORDS SUMMARY | 2025-02-28 05:44 | XMS_ITS | Encounter Summary ---
Author Organization [employer] Address [address] [place] [address] Care Team Providers Care Vocational Childcare Teacher Name Role Phone Luiza Quinonez MD Primary Care Provider [phone] Reason for Visit * Reason Onset Date Comments Appointment Request 06/21/2024 Encounter Details Date Type Department Care Team ([facility] Contact Info) Description 06/21/2024 Telephone [facility] MEDICINE [address] [place], [place] [phone] Luiza Quinonez MD [address] [place], [place] [phone] Appointment Request Social History Tobacco Use Types Packs/Day Years Used Date Smoking Tobacco: Every Day Cigarettes Smokeless Tobacco: Never Alcohol Use Standard Drinks/Week Comments Never 0 (1 standard drink = 0.6 oz pur e alcohol) Housing Stability Answer Date Recorded What is your housing situation today? I have [employer] 09/21/[address] you li ve. Do you have problems with any of the following? None of the above 09/21/2023 Food Insecurity Answer Date Recorded Within the past 12 months, y ou worried that your food would run out before you got money to buy more: Never True 09/21/2023 Within the past 12 months,th e food you bought just didn't last and you didn't have enough money to get more: Never True Transportation Answer Date Recorded In the past 12 months, has l ack of transportation kept you from medical appts, meetings, work or from getting things needed for daily living? No 12/03/2023 Utilities Answer Date Recorded In the past 12 months, has t he electric, gas, oil or water company threatened to shut off services in your home? No 09/21/2023 Depression Answer Date Recorded Patient Health Questionnaire-2 Score 0 04/10/2023 Sex and Gender Information Value Date Recorded Sex Assigned at Male 09/29/2022 10:37 AM EDT Legal Sex Male 10:37 AM EDT Gender Identity Male 09/29/2022 10:37 AM EDT Sexual Orientation Straight 09/29/2022 10 :37 AM EDT documented as of this encounter Miscellaneous Notes * Telephone Encounter - Bonifacio Lackey - 06/21/2024 2:11 PM EDT Tc from patients spouse calling to attempt to rescheduled cancel appt by provider on 06/24 lead technical writer did offer a date but it is too far out would like a sooner appt documented in this encounter Plan of Treatment Not on file documented as of this encounter Visit Diagnoses Not on filedocumented in this encounter Care Teams Vocational Childcare Teacher Relationship Specialty Start Date End Date Luiza Quinonez MD [address] [place] [phone] PCP - General Family Medicine 02/25/21 documented as of this encounter
--- OUTSIDE RECORDS SUMMARY | 2025-02-28 05:44 | XMS_ITS | Data Portability ---
Author Organization [facility], [facility] Address [address] [place] [address] Assessment No assessment recorded. Plan of Treatment Reminders Order Date Submit Date Provider Last Modified By Organization Details Last Modified Time Details Appointments None recorded. Lab liver function test 2013 014 [facility], [address] [place] [address], [address], 4 16:21:27 hepatitis C, RNA quant w/rfl genotype 2013 014 [facility], [address] [place] [address], [address], 4 06:45:59 glucose 2013 014 [facility], [address] [place] [address], [address], 4 16:21:29 Referral physical therapist referral - back care and exercise 2014 015 [facility], [address] [place], [address], 5 11:51:54 Procedures None recorded. Surgeries None recorded. Imaging None recorded. Medication Orders Colace 100 mg capsule 2013 014 [facility] #[id number], [address] [place] [address], [id number], 4 12:35:26 Wellbutrin XL 150 mg 24 hr tablet, extended release 2013 014 [id number], [address] [place] [address], [id number], 4 12:35:23 lorazepam 1 mg tablet 2013 014 pthaler [facility] #[id number], [address] [place], [place], [id number], 4 12:33:56 omeprazole 20 mg capsule,de layed release 2011 012 LISA [facility] #[id number], [address] [place], [place], [id number], 3 03:25:19 Patient TargetsNo targets recorded. Patient Instructions Encounter Date Encounter Id Patient Instructions Last Modified By Organization Details Last Modified Time 06/20/2011 [id number] Well Visit, Ages 18 to 65: Care Instructions LISA Not available 06/24/2013 04:59:26 07/12/2012 [id number] Well Visit, Ages 18 to 65: Care Instructions LISA Not available 06/25/2013 03:28:47 My Health To Do List [email or web address] Not available 07/12/2012 14:24:52 12/29/2013 [id number] Well Visit, Ages 18 to 65: Care Instructions [email or web address] Not available 12/29/2013 15:06:48 My Health To Do List As we discussed and agreed upon at your visit please work on the following: no soda!!!!!!!!!!!! !!!!!!, use debrox for ear wax pthaler Not available 12/29/2013 13:03:48 Reason for Referral back care and exercise Referring Physician: Shawn Enriquez, Family Medicine, Encounter Date: 07/18/2015 Results Created Date Observation Date Name Description Value Unit Range Abnormal Flag Note LastModifiedBy Organization Detail LastModifiedTime 02/05/20 13 02/05/2013 urina lysis compl ete color YELLOW yellow normal Not Available [facility] [address], [place], [address], 02/05/2013 06:01:52 02/05/20 13 02/05/2013 urina lysis compl ete appearance TURBID clear abnormal Not Available [facility] [place] [facility] [address], [place], [address], 02/05/2013 06:01:52 02/05/20 13 02/05/2013 urina lysis compl ete specific gravity 1.013 1.001- 1.035 normal Not Available [facility] [place] [facility] [address], [place], [address], 02/05/2013 06:01:52 02/05/20 13 02/05/2013 urina lysis compl ete pH 8.0 5.0-8. 0 normal Not Available [facility] [place] [facility] [address], [place], [address], 02/05/2013 06:01:52 02/05/20 13 02/05/2013 urina lysis compl ete glucose NEGATI VE negati ve normal Not Available [facility] [place] [facility] [address], [place], [address], 02/05/2013 06:01:52 02/05/20 13 02/05/2013 urina lysis compl ete bilirubin NEGATI VE negati ve normal Not Available [facility] [place] [facility] [address], [place], [address], 02/05/2013 06:01:52 02/05/20 13 02/05/2013 urina lysis compl ete ketones NEGATI VE negati ve normal Not Available [facility] [place] [facility] [address], [place], [address], 02/05/2013 06:01:52 02/05/20 13 02/05/2013 urina lysis compl ete occult blood NEGATI VE negati ve normal Not Available [facility] [place] [facility] [address], [place], [address], 02/05/2013 06:01:52 02/05/20 13 02/05/2013 urina lysis compl ete protein NEGATI VE negati ve normal Not Available [facility] [place] [facility] [address], [place], [address], 02/05/2013 06:01:52 02/05/20 13 02/05/2013 urina lysis compl ete nitrite NEGATI VE negati ve normal Not Available [facility] [place] [facility] [address], [place], [address], 02/05/2013 06:01:52 02/05/20 13 02/05/2013 urina lysis compl ete leukocyte esterase NEGATI VE negati ve normal Not Available [facility] [place] [facility] [address], [place], [address], 02/05/2013 06:01:52 02/05/20 13 02/05/2013 urina lysis compl ete WBC NONE SEEN /hpf < or = 5 normal Not Available [facility] [place] [facility] [address], [place], [address], 02/05/2013 06:01:52 02/05/20 13 02/05/2013 urina lysis compl ete RBC 0-3 /hpf < or = 3 normal Not Available [facility] [place] [facility] [address], [place], [address], 02/05/2013 06:01:52 02/05/20 13 02/05/2013 urina lysis compl ete squamous epithelial cells NONE SEEN /hpf < or = 5 normal Not Available [facility] [place] [facility] [address], [place], [address], 02/05/2013 06:01:52 02/05/20 13 02/05/2013 urina lysis compl ete bacteria NONE SEEN /hpf none seen normal Not Available [facility] [place] [facility] [address], [place], [address], 02/05/2013 06:01:52 02/05/20 13 02/05/2013 urina lysis compl ete hyaline cast NONE SEEN /lpf none seen normal Not Available [facility] [place] [facility] [address] [place], [address], 02/05/2013 06:01:52 02/05/20 13 02/07/2013 lipid panel cholesterol 237 mg/dL <200 mg/dL adriana able 200-2 39 mg/dL borde rline high >240 mg/dL high Not Available [address], [address], 02/07/2013 10:26:50 02/05/20 13 02/07/2013 lipid panel triglyceride s 135 mg/dL <150 mg/dL vincenzo l 150-1 99 mg/dL borde rline high 200-4 99 mg/dL high >500 mg/dL very high Not Available [address], [address], 02/07/2013 10:26:50 02/05/20 13 02/07/2013 lipid panel direct HDL 34 mg/dL Not Available [address], [address], 02/07/2013 10:26:50 02/05/20 13 02/07/2013 lipid panel direct LDL 173 mg/dL risk categ ory LDL goal _ CHD or CHD risk equiv alent s <100 mg/dL (10-y ear risk >20%) 2+ risk facto rs <130 mg/dL (10-y ear risk <= 20%) 0-1 risk facto r? <160 mg/dL ? almos t all peopl e with 0-1 risk facto r have a 10 year risk <10%, thus 10 year risk asses ment in peopl e with 0-1 risk facto r IS not neces isabella. Not Available [address], [address], 02/07/2013 10:26:50 02/05/20 13 02/07/2013 thyro id stimu latin g hormo ne (TSH) TSH 2.00 uIU/m L 0.50-6 .00 the ameri can colle ge of endoc rinol ogy and ameri can thyro id assoc iatio n recom mend goal TSH value s betwe en 1.0-2 .5 mIU/m L. Not Available [address], [address], 02/07/2013 11:04:23 02/04/20 14 02/03/2014 thyro id stimu latin g hormo ne (TSH) TSH 2.05 uIU/m L 0.50-6 .00 the ameri can colle ge of endoc rinol ogy and ameri can thyro id assoc iatio n recom mend goal TSH value s betwe en 1.0-2 .5 mIU/m L. Not Available [address], [address], 02/03/2014 15:40:32 02/04/20 14 02/03/2014 liver funct ion test total protein 7.6 g/dL 6.4-8. 2 Not Available [address], [address], 02/03/2014 16:21:27 02/04/20 14 02/03/2014 liver funct ion test albumin 4.2 g/dL 3.4-5. 0 Not Available [address], [address], 02/03/2014 16:21:27 02/04/20 14 02/03/2014 liver funct ion test globulin 3.4 g/dL Not Available [address], [address], 02/03/2014 16:21:27 02/04/20 14 02/03/2014 liver funct ion test A/G 1.2 ratio 0.8-2. 0 Not Available [address], [address], 02/03/2014 16:21:27 02/04/20 14 02/03/2014 liver funct ion test total bilirubin 0.20 mg/dL 0.00-1 .00 Not Available [address], [address], 02/03/2014 16:21:27 02/04/20 14 02/03/2014 liver funct ion test direct bilirubin 0.10 mg/dL 0.00-0 .30 Not Available [address], [address], 02/03/2014 16:21:27 02/04/20 14 02/03/2014 liver funct ion test AST 27 U/L 15-37 Not Available [address], [address], 02/03/2014 16:21:27 02/04/20 14 02/03/2014 liver funct ion test ALT 37 U/L 30-65 Not Available [address], [address], 02/03/2014 16:21:27 02/04/20 14 02/03/2014 liver funct ion test alk. phos. 42 U/L 50-136 low Not Available [address], [address], 02/03/2014 16:21:27 02/04/20 14 02/03/2014 lipid panel cholesterol 195 mg/dL <200 mg/dL adriana able 200-2 39 mg/dL borde rline high >240 mg/dL high Not Available [address], [address], 02/03/2014 16:21:28 02/04/20 14 02/03/2014 lipid panel triglyceride s 167 mg/dL <150 mg/dL vincenzo l 150-1 99 mg/dL borde rline high 200-4 99 mg/dL high >500 mg/dL very high Not Available [address], [address], 02/03/2014 16:21:28 02/04/20 14 02/03/2014 lipid panel direct HDL 32 mg/dL Not Available [address], [address], 02/03/2014 16:21:28 02/04/20 14 02/03/2014 gluco se glucose 130 mg/dL 70-100 high Not Available [address], [address], 02/03/2014 16:21:28 02/04/20 14 02/03/2014 LDL calcu lated LDL - calculated 129.6 risk categ ory LDL goal _ CHD or CHD risk equiv alent s <100 mg/dL (10-y ear risk >20%) 2+ risk facto rs <130 mg/dL (10-y ear risk <= 20%) 0-1 risk facto r? <160 mg/dL ? almos t all peopl e with 0-1 risk facto r have a 10 year risk <10%, thus 10 year risk asses ment in peopl e with 0-1 risk facto r IS not luisa mason. Not Available [address], [address], 02/03/2014 16:21:29 02/04/20 14 02/05/2014 hepat itis C, RNA quant w/rfl genot ype HCV RNA, quantitative real time PCR <15 IU/mL <15 not detec isabell* Not Available [facility] [address] [place], [place], [address], 02/06/2014 06:45:59 02/04/20 14 02/05/2014 hepat itis C, RNA quant w/rfl genot ype HCV RNA, quantitative real time PCR <1.18 log_I U/mL <1.18 not detec isabell* *plea se note: the guide lines for the use of the new anti- HCV thera pies (boce previ r and telap revir ) recom mend using a test metho d that detec ts plasm a viral nucle ic acid level s low 10 IU/mL . this assay has a limit of detec tion of 10-13 IU/mL for genot ype 1 and confo armando to the recom menda tion. quant itati on of plasm a HCV nucle ic acid level s below 15 IU/mL (the lower limit of quant itati on for this test) may not BE linea r, and in this circu mstan ce are repor isabell 15 IU/mL HCV RNA detec isabell . pleas e note: due to gurinder cter limit ation s of some clien ts' lis syste ms, viral load value s great er than 10 amarjit on are repor isabell using scien tific expon entia l notat ion. for examp le a resul t of 10 amarjit on (10,0 00,00 0) IS repor isabell 10.0E 6 IU/mL or copie s/mL. if your lis will accep t the numbe r of gurinder cters requi red for viral loads great er than 10 amarjit on, pleas e conta ct your local servi ce repre senta tive to have this repor ting conve ntion daniels ed. the metho d used in this test IS real- time PCR of the 5' utr of the HCV genom e. this test was perfo rmed using the zelalem (R) ampli prep/ zelalem (R) taqma n(R) HCV test, v2.0. for more infor ebonie schuler on this test, go to http: //antoinette wang ics.c om/fa q/faq 22v1 the perfo rmanc e gurinder cteri stics of this assay have been deter mined by [facility] t[facility]. perfo rmanc e gurinder cteri stics refer to the lesley tical perfo rmanc e of the test. Not Available [facility] [address] [place], [place], [address], 02/06/2014 06:45:59 10/29/20 11 mattiei ng/alexus back tic resul t No observ ation record ed. LISA Not Available 2012 05:33:18 Result Notes None recorded. Problems Name Problem SNOMED Code Status Onset Date Resolution Date Notes Provider Name and Address Organization Details Recorded Time Chronic hepatitis C 437679073 Active Shawn Enriquez MD [address] [place] [address], [phone] , [facility] 4 13:03:48 Mixed hyperlipid emia 083276021 Active 2004 Nakita Hawthorne [facility] 6 12:27:14 Sleep apnea 05392304 Active 2007 Shawn Enriquez MD [address] [place] [address], [address] , [facility] 4 13:03:48 Cough 90460595 Completed 200006/20/2011 Not Available [facility] 3 03:03:45 Precordial pain 98645990 Completed 200606/20/2011 Not Available [facility] 3 03:03:45 Presbyopia 88642485 Active 2008 Not Available [facility] 3 03:03:45 Gastroesop hageal reflux disease 642100926 Active 2000 Not Available [facility] 3 03:03:45 Drug dependence 107745242 Active 2007 Shawn Enriquez MD [address] [place] [address], [address] , [facility] 4 13:03:48 Acute non-suppur ative serous otitis media 212528541 Completed 200006/20/2011 Not Available [facility] 3 03:03:45 Myopia 37700615 Active 2008 Not Available [facility] 3 03:03:45 Astigmatis m 29170532 Active 2008 Not Available [facility] 3 03:03:45 Tobacco user 415253920 Active 2005 Shawn Enriquez MD [address] [place] [address], [address] , [facility] 4 13:03:48 Impacted husseinn 15065074 Completed 200306/20/2011 Not Available [facility] 3 03:03:45 Anxiety state 424523723 Completed 200306/20/2011 Not Available [facility] 3 03:03:45 Allergic rhinitis 87719495 Active 2000 Not Available [facility] 3 03:03:45 Alcohol dependence 95709518 Active 2003 Not Available [facility] 3 03:03:45 Hypersomni a with sleep apnea 67963570 Completed 200006/20/2011 Not Available [facility] 3 03:03:45 Acute suppurativ e otitis media without spontaneou s rupture of ear drum 37837710 Completed 200306/20/2011 Not Available [facility] 3 03:03:45 Esotropia 18165048 Active 2008 Not Available [facility] 3 03:03:45 Persistent insomnia 374079157 Completed 200006/20/2011 Not Available [facility] 3 03:03:45 Amblyopia 125186691 Active 2008 Not Available [facility] 3 03:03:45 Hypermetro roopa 79009605 Active 2008 Not Available [facility] 3 03:03:45 Major depression , melancholi c type 332059403 Active 2002 Not Available [facility] 3 03:03:45 Panic disorder without agoraphobi a 95562800 Active 2003 Shawn Enriquez MD [address] [place] [address], [address] , [facility] 4 13:03:48 Non-organi c sleep disorder 753530146 Completed 200006/20/2011 Not Available [facility] 3 03:03:45 Bipolar disorder 90474071 Completed 200706/20/2011 Not Available [facility] 3 03:03:45 Pain in thoracic spine 494777076 Completed 06/20/2011 Not Available [facility] 3 03:03:45 Hypothyroi dism 01068969 Active 2003 Nakita ivy [facility] 6 12:27:14 Backache 153580275 Completed 200810/19/2013 Not Available [facility] 3 02:01:11 Otogenic otalgia 26061857 Completed 200306/20/2011 Not Available [facility] 3 03:03:45 Malaise and fatigue 121458355 Completed 200306/20/2011 Not Available [facility] 3 03:03:45 Sprain of hand 05663594 Completed 200206/20/2011 Not Available [facility] 3 03:03:45 Problem Notes None recorded. Procedures Surgical History Date Name Laterality Status Provider Name and Address Organization Details Recorded Time 07/18/20 15 Cerumen Removal completed Kaylyn Rowan LPN [facility] 07/18/2015 14:27:32 01/23/20 10 Punch Biopsy completed Shawn Enriquez MD [address] [place] [address], [phone] 01/23/2010 11:06:22 Appendectomy completed Not Available [facility] 10/16/2011 06:06:16 Imaging Results Imaging Date Name Status LastModified by Organiz ation Details LastModified Time 10/29/2011 imaging/diag nostic result completed LISA Information not available 06/24/2013 05:33:18 Procedure Notes None recorded. Medical Equipment None Reported. Allergies Allergen ID Allergen Name Allergen Category Reaction Reaction Severity Criticality Documentation Date Start Date Code Code System Note Provider Name and Address Organization Details Recorded Time 9892 Haldol medicatio n anaphylax is Not available Not available 03/28/2009 05087 9 RxNorm Not Available [facility] 1 06:05:20 Medications Name Sig Start Date Stop Date Status Note LastModified by Organization Details LastModified Time bupropion HCl SR 150 mg tablet,12 hr sustained- release active Not Available Not Available Not Available Colace 100 mg capsule Take 1 capsule every day by oral route. 2013 active Not Available Not Available Not Avai lable clonidine HCl 0.1 mg tablet 03/28 completed Take 1.00 tabs twice daily Not Available Not Available Not Available lorazepam 0.5 mg tablet active Not Available Not Available Not Available levothyrox ine 50 mcg tablet Take 1 tablet every day by oral route. 2009 active Not Available Not Available Not Avai lable fluoxetine 10 mg capsule active Not Available Not Available Not Available omeprazole 20 mg capsule,de layed release take 1 capsule by mouth once daily active Not Available Not Available No t Available lorazepam 1 mg tablet Take 1 tablet twice a day by oral route as needed. 2013 active Not Available Not Available Not Avai lable Paxil 30 mg tablet 03/28 completed Take 1.00 tabs every day before noon Not Available Not Available Not Available bupropion HCl XL 150 mg 24 hr tablet, extended release TAKE 1 TABLET BY MOUTH EVERY MORNING FOR 3 DAYS THEN TAKE 1 TABLET BY MOUTH TWICE A DAY FOR A TOTAL OF 7 WEEKS. DON'T TAKE AFTER 6 PM active Not Available Not Available No t Available methadone 49 mg,maint aince dose [address] arabella Not Available Not Available Not Avai lable Seroquel 400 mg tablet 2006 active Take 1.00 tabs daily Not Available Not Available Not Available Vitals Date Recorded Body height Body weight Body mass index (BMI) Body temperature Systolic blood pressure Diastolic blood pressure Provider Name and Address Organization Details Last Updated DateTime 1 180.34 cm 42376.1 3666 g 30.4 kg/m2 98.6 [degF] 112 mm[Hg] 88 mm[Hg] Kerri [place] MA [facility] 1 11:31:50 Date Recorded Body height Body weight Body mass index (BMI) Systolic blood pressure Diastolic blood pressure Provider Name and Address Organization Details Last Updated DateTime 07/12/2012 182.245 cm 106858.5 0614 g 30.3 kg/m2 144 mm[Hg] 92 mm[Hg] Soo [facility] 2 14:24:52 Date Recorded Body height Body weight Body mass index (BMI) Body temperature Provider Name and Address Organization Details Last Updated DateTime 02/02/2013 182.118 cm 415349.17 8514 g 32.8 kg/m2 97.8 [degF] Kerri [place] MA [facility] 02/02/2013 14:03:13 Date Recorded Systolic blood pressure Diastolic blood pressure Provider Name and Address Organization Details Last Updated DateTime 02/02/2013 120 mm[Hg] 85 mm[Hg] Shawn Enriquez MD [address] [place] [address], [phone] [place] [address] 02/02/2013 14:22:49 Date Recorded Body weight Body height Body mass index (BMI) Body temperature Provider Name and Address Organization Details Last Updated DateTime 12/29/2013 142846.61 7049 g 182.118 cm 34.5 kg/m2 98.2 [degF] Kerri [place] MA [facility] 12/29/2013 12:01:37 Date Recorded Heart rate Systolic blood pressure Diastolic blood pressure Provider Name and Address Organization Details Last Updated DateTime 12/29/2013 72 /min 132 mm[Hg] 80 mm[Hg] Shawn Enriquez MD [address] [place] [address], [phone] [place] [address] 12/29/2013 13:02:19 Date Recorded Body weight Body height Body temperature Body mass index (BMI) Systolic blood pressure Diastolic blood pressure Provider Name and Address Organization Details Last Updated DateTime 5 648108. 237557 g 182.118 cm 99 [degF] 30.6 kg/m2 122 mm[Hg] 94 mm[Hg] Kerri [place] MA [facility] 5 14:05:23 Social History Question Answer Notes LastModified by Organizat ion Details LastModified Time Tobacco Smoking Status Current Every Day Smoker slightly less than 1/2 ppd- can get off without withdrawl Shawn Enriquez MD [address] [place] [address], [phone], [facility] 06/20/2011 11:53:23 Do You Have An Advance Directive? No [facility] Information not available 07/12/2012 What Is Your Level Of Alcohol Consumption? None Information not available 12/29/2013 Are You Blind Or Do You Have Difficulty Seeing? No Information not available 12/29/2013 What Is Your Level Of Caffeine Consumption? Occasional No Coffee- 1/2 Liter Of Soad A Day Information not available 06/20/2011 How Much Tobacco Do You Chew? None Information not available 10/16/2011 Are You Deaf Or Do You Have Serious Difficulty Hearing? Yes Lear Issue From Prior Procedure Information not available 12/29/2013 What Type Of Diet Are You Following? REGULAR Information not available 10/16/2011 Which Illicit Or Recreational Drugs Have You Used? None IN [place] FOR HERION No Taking Anything Now Information not available 12/29/2013 Education 12 Inform ation not available 10/16/2011 What Is Your Occupation? DISABLED Crushed Right Hand, Depression Information not available 06/20/2011 Are There Any Guns Present In Your Home? No Information not available 10/16/2011 Live Alone Or With Others? With Others Parents And A Times Iwth Girlfriend Information not available 06/20/2011 Patient Has Health Care Proxy Signed And In Chart No Form Given 12/29/13 [facility] Information not available 07/12/2012 Marital Status Single In formation not available 10/16/2011 How Many Children Do You Have? 0 Information not available 10/16/2011 Seat Belts Used Routinely Yes Information not available 10/16/2011 Are You Sexually Active? Yes Both She Andhe Tested For Std Information not available 07/12/2012 Smoke Alarm In Home Yes Information not available 10/16/2011 At What Age Did You Start Smoking Tobacco? 13 Information not available 10/16/2011 What Types Of Sporting Activities Do You Participate In? NONE Information not available 10/16/2011 General Stress Level Medium Information not available 10/16/2011 Do You Use Sunscreen Routinely? Yes Information not available 10/16/2011 Sex: Unknown Functional Status Question Answer Note LastModified by Organization D etails LastModified Time Do you have difficulty walking or climbing stairs? No Information not available 12/29/2013 Do you have difficulty doing errands alone? No Information not available 12/29/2013 Do you have difficulty dressing or bathing? No Information not available 12/29/2013 Mental Status Question Answer Note LastModified by Organization D etails LastModified Time Do you have difficulty concentrating, remembering or making decisions? No Information no t available 12/29/2013 Family History Nothing Reported Notes:mother- hypothyroidism father healthy sibs- healthy Medical History Condition Response Asthma GERD Y Immunizations Vaccine Type Date Status Note Provider Nam e and Address Organization Details Recorded Time Td(adult) unspecified formulation 6 completed Not Available [facility] 10/15/2011 05:21:29 Past Encounters Encounter ID Performer Location Encounter Start Date Encounter Closed Date Diagnosis/Indication Diagnosis SNOMED-CT Code Diagnosis ICD10 Code Diagnosis Note [id number] [facility], OFFICE [address] [place] [address] 05/03/2001 14:30:00 12/20/2008 02:02:29 [id number] [facility], OFFICE [address] [place] [address] 09/20/2001 09:30:00 12/20/2008 02:02:29 [id number] [facility] [address] [facility] [place] [id number] 08/24/2002 00:00:00 12/20/2008 02:02:29 [id number] [facility], OFFICE [address] [place] [address] 04/20/2003 10:16:12 12/20/2008 02:02:29 [id number] [facility] - [facility] [address] [place] [address] 03/01/2004 09:24:28 03/01/2004 12:57:10 [id number] [facility], OFFICE [address] [place] [address] 03/01/2004 08:58:53 03/01/2004 17:43:39 [id number] [facility], OFFICE [address] [place] [address] 1 04/04/2004 14:38:15 04/05/2004 08:41:40 [id number] [facility], OFFICE [address] [place] [address] 05/15/2004 13:51:19 05/16/2004 09:09:14 [id number] [facility], OFFICE [address] [place] [address] 1 05/30/2004 11:31:13 05/31/2004 09:39:43 [id number] [facility], OFFICE [address] [place] [address] 1 07/29/2004 13:54:56 07/29/2004 17:53:40 [id number] [facility], OFFICE [address] [place] [address] [place] [address] 1 09/04/2004 09:49:41 09/06/2004 08:00:49 [id number] [facility], OFFICE [address] [place] [address] 1 11/08/2004 11:27:52 11/11/2004 09:38:48 [id number] [facility], OFFICE [address] [place] [address] 1 11/14/2004 14:33:38 11/15/2004 08:30:16 [id number] LAB - [address] [address] 11/15/2004 10:45:51 11/15/2004 10:46:14 [id number] [facility], OFFICE [address] [place] [address] [place] [address] 1 01/10/2005 10:48:07 01/10/2005 17:40:57 [id number] [facility], OFFICE [address] [place] [address] 1 03/26/2005 13:43:22 03/27/2005 08:57:18 [id number] [facility] - [address] [place] [address] 03/26/2005 14:51:46 03/26/2005 14:52:10 [id number] [facility], [facility] [address] [place] [address] 11/20/2005 00:00:00 12/20/2008 02:02:29 [id number] , [facility], [facility] [address] [facility], [place] [address] 11/19/2005 00:00:00 12/20/2008 02:02:29 [id number] [facility], OFFICE [address] [place] [address] 06/03/2006 14:00:49 12/20/2008 02:02:29 [id number] LAB [facility] [address] 06/23/2006 15:18:28 06/23/2006 15:18:41 [id number] [facility], OFFICE [address] [place] [address] 08/04/2006 12:15:01 08/05/2006 09:20:43 [id number] LAB - [facility] [address] 12/08/2006 09:59:14 12/08/2006 09:59:23 [id number] [facility], OFFICE [address] [place] [address] 02/19/2007 12:05:28 02/19/2007 15:14:42 [id number] [facility] [address] [place] [address] 1 02/19/2007 12:27:48 02/19/2007 12:27:58 [id number] [facility], OFFICE [address] [place] [address] 06/09/2007 10:51:17 2007 08:10:10 [id number] [facility], OFFICE [address] [place] [address] 1 05/11/2008 11:34:05 12/20/2008 02:02:29 [id number] [facility], OFFICE [address] [place] [address] 1 10/09/2008 12:41:31 12/20/2008 02:02:29 [id number] [facility], OFFICE [address] [place] [address] 03/28/2009 13:59:29 04/02/2009 14:57:14 [id number] Physical Therapy, [address] [place] [address] 04/04/2009 11:54:26 04/05/2009 08:12:38 [id number] [facility], [address] [place] [address] 01/24/2009 10:04:59 01/24/2009 11:12:02 [id number] [facility] [address] [place] [address] 01/24/2009 12:05:35 01/24/2009 15:48:21 [id number] [facility], OFFICE [address] [place] [address] 12/07/2009 11:50:55 12/10/2009 15:57:36 [id number] [facility], OFFICE [address] [place] [address] 01/03/2010 13:10:43 01/07/2010 10:22:14 [id number] [facility], OFFICE [address] [place] [address] 01/23/2010 10:30:17 01/25/2010 09:31:01 [id number] [facility], OFFICE [address] [place] [address] 06/20/2011 11:24:24 06/20/2011 12:13:29 [id number] [facility], OFFICE [address] [place] [address] 07/12/2012 14:11:00 07/12/2012 14:43:18 [id number] Alyssa Ordoñez [facility], OFFICE [address] [place] [address] 02/02/2013 13:56:46 02/02/2013 16:15:08 [id number] [facility], OFFICE [address] [place] [address] 12/29/2013 11:34:37 12/29/2013 13:34:02 Adult health examination [id number] see Risk Assessment and Lifestyle Change Counseling section above Counseling [id number] Drug dependence 103934532 cont methadone Tobacco user [id number] u rged to quit smoking 7 weeks of wellbutrin is being tried- instructed how to use Panic diso rder without agoraphobia 26382926 Chronic constipation 144830991 Chronic hepatitis C 158086410 Impacted cerumen 40243459 ret for irrigation Sleep apnea 58259184 ret for further discussion nexgt week [id number] Ema Sheth [facility], OFFICE [address] [place] [address] 07/18/2015 13:56:28 07/18/2015 14:26:20 Impacted cerumen 44283183 ret for irrigation Lumbar sprain 859340175 Increased blood pressure 82101251 ret for pha . will echeck BP then Health Concerns Section Related Observation LastModified by Organization Detai ls LastModified Time None Recorded Concern Status LastModified by Organization Details LastModified Time None Recorded Advance Directives Directive N: Payers Encounter Date Sequence Insurance Name Policy Number Policy Recio Covered Member ID Recio Member ID Guarantor Name 06/20/2011 2 [place] Donavan Perez [id number] Donavan Raya Chris 07/12/2012 2 [place] Donavan Perez [id number] Donavan Raya Chris 02/02/2013 2 [place] Donavan Perez [id number] Donavan Raya Chris 12/29/2013 2 [place] Donavan Perez [id number] Donavan Ryaa Chris 07/18/2015 2 [place] Donavan Perez [id number] Donavan Raya Chris Notes Date Note Type Note Provider Name and Address Organization Details Recorded Time 06/20/2011 text/html InitializeSectio n( this.parentNode, 1 ); this.removeNode(natalya e)HPI None recorded. Shawn Enriquez MD [address] [place] [address], [phone], [facility] 06/20/2011 12:36:23 02/02/2013 text/html had trouble gett ing urine flow started for a couple of weeks, now it is better, gets up once a night to urinate. no burning, no blood in urine., says utine is yellow. may not be drinking enough fluids. Shawn Enriquez MD [address] [place] [address], [phone], [facility] 02/02/2013 14:54:13 12/29/2013 text/html here for pha- at methadone clinic toll has antibodies to HepC. trouble urinating- hesistation on and off.stools are hard due to methadone.Has restless legs. on nothing for depressin at this time. is during finenow. GEts panic attacks a couple of times a week. Panic got worse on paxil.left ear impacted since had cholesteotoma. for cigs- treat e-cigs didn't work, pathces didn't work. afraid of chantix because of sucidal thought on paxil.has sleep apnea.. Shawn Enriquez MD [address] [place] [address], [phone], [facility] 12/29/2013 13:06:38 07/18/2015 text/html left ear blocked for a year- trouble hearing-alittle pain. had cholesteotoma removed 2007.- also 6 months of left low back pain. nonradiating, noweakness or numbness in legs Shawn Enriquez MD [address] [place] [address], [phone], [facility] 07/18/2015 15:20:17
--- OUTSIDE RECORDS SUMMARY | 2025-02-28 05:44 | XMS_ITS | Encounter Summary ---
Author Organization [employer] Address [address] [facility] [address] [place] [address] Care Team Providers Care Manager Infusion Name Role Phone Luiza Quinonez MD Primary Care Provider [phone] Encounter Details Date Type Department Care Team (Late st Contact Info) Description 01/28/2023 Orders Only [facility] MEDICINE [address] [place], [place] [phone] Luiza Quinonez MD [address] [place] [address] Mixed anxiety and depressive disorder (Primary Dx) Social History Tobacco Use Types Packs/Day Years Used Date Smoking Tobacco: Never Assessed Sex and Gender Information Value Date Recorded Sex Assigned at Male 09/29/2022 10:37 AM EDT Legal Sex Male 10:37 AM EDT Gender Identity Male 09/29/2022 10:37 AM EDT Sexual Orientation Straight 09/29/2022 10 :37 AM EDT documented as of this encounter Plan of Treatment Not on file documented as of this encounter Visit Diagnoses Diagnosis Mixed anxiety and depressive disorder- Primary Dysthymic disorder documented in this encounter Care Teams Manager Infusion Relationship Specialty Start Date End Date Luiza Quinonez MD [address] [place], [place] [phone] PCP - General Family Medicine 02/25/21 Shaneka Johnson RN Care Manager 12/18/23 02/28/24 documented as of this encounter
--- OUTSIDE RECORDS SUMMARY | 2025-02-28 05:44 | XMS_ITS | Encounter Summary ---
Author Organization [employer] Address [address] [facility] [address] [place] [address] Care Team Providers Care Senior Media Planner Name Role Phone Luiza Quinonez MD Primary Care Provider [phone] Reason for Visit * Reason Comments Med Refill Encounter Details Date Type Department Care Team ([facility] st Contact Info) Description 11/09/2023 Refill [facility] MED[facility] [address] [place], [place] [phone] Luiza Quinonez MD [address] [place] [address] Social History Tobacco Use Types Packs/Day Years [...] from getting things needed for daily living? Yes, it has kept me from medical appointments or getting medications. 09/06/2023 Utilities Answer Date Recorded In the past [...] on filedocumented in this encounter Care Teams Senior Media Planner Relationship Specialty Start Date End Date Luiza Quinonez MD [address] [place] [address] PCP - General Family Medicine 02/25/21 Shaneka Johnson RN Care Manager 12/18/23 02/28/24 documented as of this encounter
--- OUTSIDE RECORDS SUMMARY | 2025-02-28 05:44 | XMS_ITS | Encounter Summary ---
Author Organization [employer] Address [address] [facility] [address] [place] [address] Care Team Providers Care Family Day Carer Name Role Phone Luiza Quinonez MD Primary Care Provider [phone] Encounter Details Date Type Department Care Team ([facility] st Contact Info) Description 07/13/2023 Telephone [facility] MED[facility]INE [address] [place], [place] [phone] Luiza Quinonez MD [address] [place] [address] Social History Tobacco Use Types Packs/Day Years Used Date Smoking Tobacco: Every Day Cigarettes Smokeless Tobacco: Never Alcohol Use Standard Drinks/Week Comments Never 0 (1 standard drink = 0.6 oz pur e alcohol) Depression Answer Date Recorded Patient Health Questionnaire-2 Score 0 04/10/2023 Sex and Gender Information Value Date Recorded Sex Assigned at Male 09/29/2022 10:37 AM EDT Legal Sex Male 10:37 AM EDT Gender Identity Male 09/29/2022 10:37 AM EDT Sexual Orientation Straight 09/29/2022 10 :37 AM EDT documented as of this encounter Miscellaneous Notes * Telephone Encounter - Shona Rico - 07/13/2023 9:32 AM EDT Tc from pt requesting 07/13 appointment with PCP to be a tele-visit due to not feeling well. Please contact pt at [phone] documented in this encounter Plan of Treatment Not on file documented as of this encounter Visit Diagnoses Not on filedocumented in this encounter Care Teams Family Day Carer Relationship Specialty Start Date End Date Luiza Quinonez MD [address] [place] [address] PCP - General Family Medicine 02/25/21 Shaneka Johnson RN Care Manager 12/18/23 02/28/24 documented as of this encounter
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
--- OUTSIDE RECORDS SUMMARY | 2025-02-28 05:44 | XMS_ITS | Encounter Summary ---
Author Organization [employer] Address [address] [facility] 7t [place] [address] Care Team Providers Care Online Tutor Name Role Phone Luiza Quinonez MD Primary Care Provider [phone] Reason for Visit * Reason Onset Date Comments Med Refill 11/18/2023 Encounter Details Date Type Department Care Team ([facility] st Contact Info) Description 11/18/2023 Refill [facility] MEDICINE [address] [place], [place] [phone] Luiza Quinonez MD [address] [place] [address] Social History Tobacco Use Types Packs/Day Years [...] on filedocumented in this encounter Care Teams Online Tutor Relationship Specialty Start Date End Date Luiza Quinonez MD [address] [place] [address] PCP - General Family Medicine 02/25/21 Shaneka Johnson RN Care Manager 12/18/23 02/28/24 documented as of this encounter
--- OUTSIDE RECORDS SUMMARY | 2025-02-28 05:44 | XMS_ITS | Encounter Summary ---
Author Organization [employer] Address 75 [facility] 7t [place] [address] Care Team Providers Care Radiologic Technology Instructor Name Role Phone Luiza Quinonez MD Primary Care Provider [phone] Reason for Visit * Reason Onset Date Comments Prior Authorization [facility]: Nita Encounter Details Date Type Department Care Team ([facility] st Contact Info) Description 02/24/2025 Telephone [facility] MEDICINE [address] [place], [place] [phone] Luiza Quinonez MD [address] [place] [address] Prior Authorization [facility] Request: Nita) Social History Tobacco Use Types Packs/Day Years [...] encounter Miscellaneous Notes * Telephone Encounter - Jojo Blanc - 02/24/2025 1:11 PM EDT ROMIE initiated on Covermymeds for Rybelsus . Approval/denial pending. Holman: [id number] Rx #: [id number] PA has been approved, approval has been uploaded to Media. documented in this encounter Plan of Treatment Not on file documented as of this encounter Visit Diagnoses Not on filedocumented in this encounter Additional Health Concerns Assessment Noted Time PHQ-9 Depression Total Score: 10 024 11:31 AM EDT documented as of this encounter Care Teams Radiologic Technology Instructor Relationship Specialty Start Date End Date Luiza Quinonez MD [address] [place] [address] PCP - General Family Medicine 02/25/21 documented as of this encounter
--- OUTSIDE RECORDS SUMMARY | 2025-02-28 05:44 | XMS_ITS | Encounter Summary ---
Author Organization [employer] Address [address] [facility] 7t [place] [address] Care Team Providers Care Business Continuity Analyst Name Role Phone Luiza Quinonez MD Primary Care Provider [phone] Encounter Details Date Type Department Care Team (Late st Contact Info) Description 03/05/2023 Telephone [facility] MEDICINE [address] [place], [place] [phone] Luiza Quinonez MD [address] [place] [address] [phone] Social History Tobacco Use Types Packs/Day Years [...] on filedocumented in this encounter Care Teams Business Continuity Analyst Relationship Specialty Start Date End Date Luiza Quinonez MD [address] [place] [address] [phone] PCP - General Family Medicine 02/25/21 Shaneka Johnson RN Care Manager 12/18/23 02/28/24 documented as of this encounter
--- OUTSIDE RECORDS SUMMARY | 2025-02-28 05:44 | XMS_ITS | Encounter Summary ---
Author Organization [employer] Address [address] [facility] 7t [place] [address] Care Team Providers Care Speed Belt Sander Tender Name Role Phone Luiza Quinonez MD Primary Care Provider Encounter Details Date Type Department Care Team ([facility] st Contact Info) Description 05/03/2023 Orders Only [facility] MEDICINE [address] [place], [place] [phone] Luiza Quinonez MD [address] [place] [address] Decreased testosterone level (Primary Dx); H/O secondary hypogonadism; Secondary male hypogonadism Social History Tobacco Use Types Packs/Day Years [...] Orientation Straight 09/29/2022 10 :37 AM EDT COVID-19 Exposure Response Date Recorded In the last 10 days, have yo u been in contact with someone who was confirmed or suspected to have Coronavirus/COVID-19? 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
--- OUTSIDE RECORDS SUMMARY | 2025-02-28 05:44 | XMS_ITS | Encounter Summary ---
Author Organization [employer] Address [address] [facility] [address] [place] [address] Care Team Providers Care Steam Flattener Name Role Phone Luiza Quinonez MD Primary Care Provider [phone] Encounter Details Date Type Department Care Team ([facility] st Contact Info) Description 01/08/2024 Orders Only [facility] MEDICINE [address] [place], [place] [phone] Luiza Quinonez MD [address] [place] [address] Excessive daytime sleepiness (Primary Dx) Social History Tobacco Use Types [...] as of this encounter Visit Diagnoses Diagnosis Excessive daytime sleepiness- Primary documented in this encounter Care Teams Steam Flattener Relationship Specialty Start Date End Date Luiza Quinonez MD [address] [place] [address] PCP - General Family Medicine 02/25/21 Shaneka Johnson RN Care Manager 12/18/23 02/28/24 documented as of this encounter
--- OUTSIDE RECORDS SUMMARY | 2025-02-28 05:44 | XMS_ITS | Encounter Summary ---
Author Organization [employer] Address [address] [facility] [address] [place] [address] Care Team Providers Care Director Of Patient Safety Name Role Phone Luiza Quinonez MD Primary Care Provider [phone] Reason for Visit * Reason Onset Date Comments Appointment Request 02/29/2024 Encounter Details Date Type Department Care Team ([facility] Contact Info) Description 02/29/2024 Telephone [facility] MEDICINE [address] [place], [place] [phone] Luiza Quinonez MD [address] [place], [place] [phone] Appointment Request Social History Tobacco Use Types [...] * Telephone Encounter - Bonifacio Lackey - 02/29/2024 3:32 PM EDT Tc from the patient calling to cancel appt for 02/28 and would like a call back to reschedule documented in this encounter Plan of Treatment Not on file documented as of this encounter Visit Diagnoses Not on filedocumented in this encounter Care Teams Director Of Patient Safety Relationship Specialty Start Date End Date Luiza Quinonez MD [address] [place] [id number] PCP - General Family Medicine 02/25/21 documented as of this encounter
[2025-02-28] MEDS: Insulin Lispro 100 UNIT/ML 3 ML VIAL 14 UNIT SUBCUT (05:54)
[2025-02-28] MEDS: Insulin Glargine,Hum.rec.anlog 100 UNIT/ML 10 ML VIAL 80 UNIT SUBCUT (05:54)
[2025-02-28 06:00] VITALS: BP 158/80; PULSE 108; RESP 18; TEMP 36.7; O2SAT 99
[2025-02-28 06:02] VITALS: BP 158/80; PULSE 108; RESP 18; TEMP 36.7; O2SAT 99
== END 2025-02-28 06:03 | disposition home or self-care (01) ==
PROVIDERS: Emergency Provider Internal Medicine; PCP General Practice
DX: R07.89 Other chest pain (principal); E11.65 Type 2 diabetes mellitus with hyperglycemia; E78.5 Hyperlipidemia, unspecified; Z03.818 Encounter for observation for suspected exposure to other biological agents ruled out; F17.210 Nicotine dependence, cigarettes, uncomplicated; F11.20 Opioid dependence, uncomplicated; Z79.4 Long term (current) use of insulin; Z79.82 Long term (current) use of aspirin; Z79.899 Other long term (current) drug therapy; Z79.84 Long term (current) use of oral hypoglycemic drugs; Z79.02 Long term (current) use of antithrombotics/antiplatelets
CPT/HCPCS: 0241U; 71046; 80053; 83880; 84484; 85027; 85610; 93005; 99283; 99285

== ENCOUNTER → 2025-02-28 04:20 | Outpatient (BNV) | payer MEDICARE, MEDICAID, SELFPAY | PROVIDERS: Emergency Provider Internal Medicine; PCP General Practice; Visit Provider Internal Medicine | DX: R07.9 Chest pain, unspecified (principal) | CPT/HCPCS: 93010 ==